=== PATIENT | female | born 1935 | race Caucasian/White ===

== ENCOUNTER 2024-09-08 11:56 | Inpatient (IN) | payer MEDICARE, SELFPAY ==
[2024-09-08] VITALS (16 sets, daily range): BP systolic 129–231; BP diastolic 60–116; PULSE 56–97; RESP 15–20; TEMP 36.1–36.6; O2SAT 96–99; BMI 21.3; BMI 20.7
--- NOTE | ~2024-09-08 | CT_ITS ---
EXAMINATION: CT HEAD WITHOUT IV CONTRAST STROKE HISTORY: Stroke Protocol. TECHNIQUE: Unenhanced helical CT of the head was performed per standard departmental protocol. Coronal and sagittal reformats of the head were also evaluated. One or more of the following techniques was used for dose reduction: Automated exposure control, adjustment of the mA and/or kV according to patient size, use of iterative reconstruction technique. DLP: 642 mGy-cm COMPARISON: There are no prior studies available for comparison. FINDINGS: BRAIN: There is diffuse prominence of the ventricular system and cortical sulci, consistent with atrophy. Periventricular and subcortical white matter hypodensities are noted which are nonspecific, but often seen in the setting of small vessel ischemic disease. There is encephalomalacia in the left occipital lobe, consistent with an old infarct. There is no mass effect or midline shift. No intra- or extra-axial fluid collections are identified. SINUSES: The visualized paranasal sinuses are clear. The mastoid air cells and middle ear cavities are well pneumatized. ORBITS: The visualized orbits are unremarkable. BONES/SOFT TISSUES: The extracranial soft tissues are unremarkable. The calvarium is intact. No suspicious lytic or sclerotic lesions. CT/CT head for STROKE IMPRESSION: No acute intracranial abnormality. No evidence of intracranial hemorrhage. These findings were discussed with Dr. Macias in the emergency room on 09/08/2024 at 12:25 PM. Electronically signed by: Reji Hays MD 09/08/2024 12:24 PM EDT
--- NOTE | ~2024-09-08 | CT_ITS ---
EXAMINATION: CT HEAD NECK ANGIOGRAPHY WITH IV CONTRAST STROKE HISTORY: Stroke Protocol COMPARISON: Correlation is made with the unenhanced head CT performed immediately prior. TECHNIQUE: Helical axial images were obtained from the aortic arch to the vertex after intravenous injection of contrast per standard departmental protocol. MIP/3D reconstructions were obtained and reviewed. One or more of the following techniques was used for dose reduction: Automated exposure control, adjustment of the mA and/or kV according to patient size, use of iterative reconstruction technique. DLP: 615 mGy-cm FINDINGS: CTA NECK: AORTIC ARCH: The visualized portions of the arch as well as innominate, right subclavian, and left subclavian arteries show no hemodynamically significant stenosis. Right common carotid artery: There is no large vessel occlusion or hemodynamically significant stenosis. Right internal carotid artery: There is a moderate amount of calcified and noncalcified plaque at the carotid bulb. There is no large vessel occlusion or hemodynamically significant stenosis. Left common carotid artery: There is no large vessel occlusion or hemodynamically significant stenosis. Left internal carotid artery: There is a moderate amount of calcified and noncalcified plaque at the carotid bulb. There is no large vessel occlusion or hemodynamically significant stenosis. (Extracranial internal carotid artery stenosis estimates are based on use of distal ICA as the denominator.) Right vertebral artery: There is no large vessel occlusion or hemodynamically significant stenosis. Left vertebral artery: There is no large vessel occlusion or hemodynamically significant stenosis. CTA HEAD: Right intracranial ICA: There is marked calcification of the cavernous internal carotid artery with a probable significant stenosis. Right SUJEY: There is no large vessel occlusion, hemodynamically significant stenosis, or aneurysm. Right MCA: There is no large vessel occlusion, hemodynamically significant stenosis, or aneurysm. Left intracranial ICA: There is no large vessel occlusion, hemodynamically significant stenosis, or aneurysm. Left SUJEY: There is no large vessel occlusion, hemodynamically significant stenosis, or aneurysm. Left MCA: There is no large vessel occlusion, hemodynamically significant stenosis, or aneurysm. Basilar artery: There is moderate irregularity of the basilar artery. There is no large vessel occlusion, hemodynamically significant stenosis, or aneurysm. Superior cerebellar arteries: There is no large vessel occlusion, hemodynamically significant stenosis, or aneurysm. Right MARKER HAND: There is no large vessel occlusion, hemodynamically significant stenosis, or aneurysm. Left MARKER HAND: There is origin of the left posterior cerebral artery. There is no large vessel occlusion, hemodynamically significant stenosis, or aneurysm. VEINS: Venous enhancement is within normal limits for this technique. SOFT TISSUES: The bilateral parotid, submandibular, and thyroid glands are unremarkable. No laryngeal abnormality is identified. There is no cervical lymphadenopathy. 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 No large vessel occlusion or aneurysm in the head and neck. Electronically signed by: Reji Hays MD 09/08/2024 12:42 PM EDT
--- NOTE | ~2024-09-08 | US_ITS ---
EXAMINATION: BILATERAL CAROTID ULTRASOUND WITH DOPPLER HISTORY: Carotid stenosis COMPARISON: Correlation is made with a CT angiogram of the neck dated 09/08/2024. TECHNIQUE: Real time and Color and Spectral doppler ultrasonography of the carotid and vertebral arteries was performed in multiple planes. FINDINGS: There is mild plaque at both carotid bulbs. VERTEBRAL FLOW DIRECTION: Antegrade bilaterally. PEAK SYSTOLIC VELOCITIES (in cm/sec): RIGHT: CCA: Prox: 47.0 Dist: 47.0 ICA: Prox: 67.0 Mid: 65.9 Dist: 67.8 ICA/CCA Ratio: 1.44 ECA: 61.6 Peak ICA end diastolic velocity (EDV): 22.1 LEFT: CCA: Prox: 38.8 Dist: 38.8 ICA: Prox: 134 Mid: 55.3 Dist: 69.8 ICA/CCA Ratio: 3.45 ECA: 68.3 Peak ICA end diastolic velocity (EDV): 24.3 US/US carotid duplex BI IMPRESSION: Findings consistent with 0-49% stenosis of the right internal carotid artery and 50-79% stenosis of the left internal carotid artery. Electronically signed by: Reji Hays MD 09/09/2024 01:04 PM EDT
--- NOTE | ~2024-09-08 | MR_ITS ---
CLINICAL HISTORY: Right facial paralysis MR Brain without intravenous contrast Comparison: Head CT from 09/08/2024 Findings: Multiple sequences are degraded by motion artifacts. Study remains diagnostic for acute brain infarction. Predominately linear restricted diffusion concerning for acute brain infarction measures 0.4 x 1.2 cm in medial aspect of the left frontal lobe with involvement of the left frontal centrum semiovale white matter, near midline (image 19 of series 6 and series 7). Small old infarction redemonstrated in the left parieto-occipital junction (imaged 11 of series 5). 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 No midline shift or hydrocephalus. Moderate volume loss is generalized. [id number] white matter pathology likely due to combination of small-vessel ischemic disease and wallerian degeneration. Fluid and mucosal thickening of the paranasal sinuses are multifocal. Small left mastoid effusion. Previous cataract procedure changes with motion artifacts in the orbits/globes. Partially empty sella. Degenerative changes include the imaged spine. IMPRESSION: 1. Small acute infarction in the left frontal lobe measures up to 1.2 cm. 2. Redemonstration of the small old infarctions including of the left parieto-occipital junction. 3. Nonacute white matter pathology is [id number] with likely combination of small-vessel ischemic disease and wallerian degeneration. This document has been electronically signed by: Bryan Adams MD on 09/08/2024 21:35:32
--- NOTE | ~2024-09-08 | XR_ITS ---
EXAMINATION: XR CHEST CLINICAL INFORMATION: stroke COMPARISON: None available. TECHNIQUE: Frontal view of the chest was obtained. FINDINGS: There is convex right curvature of the thoracic spine. There are moderate degenerative changes in the glenohumeral joint with humeral head osteophytes. Amorphous calcific densities are visible in the soft tissues cephalad to the right greater than left humeral head. Moderate calcification is seen in the aortic knob. Coarse interstitial markings are seen in the lateral left lung base .Lungs are clear otherwise. There is biapical pleural thickening, more on the left. XR/XR chest 1V IMPRESSION: Coarse interstitial markings in the left lung base are probably chronic, early pneumonia is not ruled out. Moderate degenerative changes bilateral shoulder joints. Amorphous calcification in the right greater than left soft tissue cephalad to the humeral heads probably represents pyrophosphate deposition or less likely calcific tendinitis. Electronically signed by: Kushal Rosenberg MD 09/08/2024 02:14 PM EDT
--- NOTE | 2024-09-08 11:59 | ECG_ITS ---
Test Reason : Stroke Protocol Blood Pressure : */* mmHG Vent. Rate : 75 BPM Atrial Rate : 75 BPM P-R Int : 154 ms QRS Dur : 132 ms QT Int : 422 ms P-R-T Axes : 68 8 19 degrees QTcB Int : 471 ms Normal sinus rhythm Right bundle branch block Abnormal ECG No previous ECGs available Referred By: Tony Macias Electronically Signed By: TIFFANY ARRIAGA
--- NOTE | 2024-09-08 12:03 | ED.NEUROSD ---
HPI - Neuro Symptoms/Deficit General Chief Complaint: Stroke Stated Complaint: STROKE ALERT, LKW 11AM, HTN, R SIDED DROOP Source: patient, EMS and RN notes reviewed Mode of arrival: EMS Limitations: no limitations History of Present Illness ED Provider: DR. Macias HPI Narrative: 89-year-old female PMH significant for dementia, HTN, anxiety living at assisted living at [facility], last noticed to be normal 11:00, started to have right facial droop and reportedly slurred speech, patient was transported to the hospital as a stroke alert. Reviewing patient medication there is no anticoagulation therapy. On arrival to the ED primary survey revealed apparent right facial droop with no slurred speech, no other weakness. Related Data Allergies Allergy/AdvReac Type Severity Reaction Status Date / Time No Known Allergies Allergy Verified 09/08/24 12:16 Review of Systems Review of Systems: Yes all other systems are reviewed and are negative [facility] Social History Social History Advance Directives: Yes Advance Directives Information Provided: No Advance Directives on File: No Physical Exam Vital Signs: Vital Signs: Last Vital Signs Temp 97.6 F 09/08/24 12:15 Pulse 78 09/08/24 13:08 Resp 16 09/08/24 12:47 BP 202/96 H 09/08/24 13:08 Pulse Ox 99 09/08/24 12:47 O2 Del Method Room Air 09/08/24 12:47 BMI result Body Mass Index 21.3 Appearance: Alert. Oriented X3. No acute distress. Head: Normal external exam. Normocephalic. Atraumatic. No Paula signs noted. No raccoon eyes noted Eyes: PERRLA. EOMI. Conjunctiva and sclera normal. Eyelids normal. ENT: TM's Normal. Pharynx normal. Uvula midline. Moist mucous membranes. No trismus noted. No drooling noted. No muffled voice noted. Neck: Normal inspection. Neck supple. FROM. No adenopathy. Thyroid Normal. No meningeal signs. No neck mass noted. CVS: Normal heart rate and rhythm. Heart sound normal. No murmurs noted. Pulses normal throughout. Respiratory: No respiratory distress. Painless inspiration. Breath sounds normal. No wheezes/rales/rhonchi noted. Chest nontender. No accessory muscle usage noted or decreased air movement noted. Abdomen: Soft and nontender. Bowel sounds normal in all 4 quadrants. No distention noted. No organomegaly noted. No visible injury noted. Back: No CVA tenderness. Full range of motion noted. Skin: Skin warm and dry. Normal skin color. Normal skin turgor. No rashes/lesions/lacerations noted. Extremities: No lower extremity edema. Extremities exhibit normal range of motion. Extremities nontender. Neuro: Oriented X 3. Cranial nerve exam:Right facial droop otherwise II-XII are grossly intact No motor deficit. No sensory deficit. Reflexes normal. Course Reevaluation(s) Reevaluation #1: 89-year-old female came in with right-sided facial droop started at 11:00, NIH score is 2, no LVO on CTA and negative head CT, gradual improvement of the slurred speech, blood pressure is elevated. 1. Case discussed with Dr. Loyd no thrombolysis because patient is improving and low NIH score and extreme of age, will administer aspirin in the ED. 2. Elevated blood pressure controlled with 2 doses of 5 mg of labetalol then oral 100 mg of labetalol. 3. Will admit the patient for further evaluation. Time: 13:31 Medications Administered Discontinued Medications Generic Name Dose Route Start Last Admin Trade Name Keoq PRN Reason Stop Dose Admin Aspirin 325 mg 09/08/24 12:38 09/08/24 12:51 Aspirin Enteric Coated 325 Mg Tablet.Dr MONGE 09/08/24 12:39 325 mg ONCE ONE Administration Iohexol 70 ml 09/08/24 12:24 09/08/24 12:24 Iohexol 350 Mg/Ml 100 Ml Infus..Btl IV 09/08/24 12:25 70 ml ONCE ONE Administration Labetalol HCl 5 mg 09/08/24 12:20 09/08/24 12:27 Labetalol Hcl 100 Mg/20 Ml Vial IVPUSH 09/08/24 12:21 5 mg ONCE ONE Administration Labetalol HCl 5 mg 09/08/24 12:52 09/08/24 13:08 Labetalol Hcl 100 Mg/20 Ml Vial IVPUSH 09/08/24 12:53 5 mg ONCE ONE Administration Medical Decision Making Differential Diagnosis Differential Diagnoses: The differential diagnosis associated with the presentation includes ( Hemorrhagic stroke, ischemic stroke, cardiac dysrhythmia, ACS, electrolyte derangement, severe anemia, hypertensive urgency, hypertensive emergency.) Admission/Observation Consideration of admission/observation: Escalation of care including admission/observation considered Consult Healthcare Provider Management of the patient was discussed with: Hospitalist ( Dr. Larsen) and Employment Training Specialist ( Dr. Loyd) Lab Data MDM Lab Attestation statement: I reviewed the patient's lab results. 09/08/24 12:39 09/08/24 12:39 Labs: Lab Results 09/08/24 09/08/24 09/08/24 Range/Units 11:58 12:20 12:39 WBC 10.6 (4.8-10.8) X10*3/uL RBC 4.62 (4.20-5.50) X10*6/uL Hgb 13.3 (12.0-16.0) g/dl Hct 38.9 (37.0-47.0) % MCV 84.2 (80.0-98.0) fL MCH 28.8 (27.0-33.0) pg MCHC 34.2 (31.0-35.0) g/dl RDW 14.0 (11.0-16.0) % Plt Count 357 (160-400) X10*3/uL MPV 9.1 L (9.4-12.3) fL Immature Gran % (Auto) 0.5 H (0.0-0.4) % Neut % (Auto) 75.5 H (45-73) % Lymph % (Auto) 14.5 L (20-40) % [place] % (Auto) 8.3 (2-11) % Eos % (Auto) 0.6 (0-4) % Baso % (Auto) 0.6 (0-2) % Lymph # (Auto) 1.5 (1.2-4.9) X10*3/uL [place] # (Auto) 0.9 (0.1-1.2) X10*3/uL Eos # (Auto) 0.1 (0.0-0.4) X10*3/uL Baso # (Auto) 0.1 (0.0-0.2) X10*3/uL Abs Immat Gran (auto) 0.05 H (0.00-0.03) X10*3/uL Absolute Neuts (auto) 8.0 (2.0-8.3) x10*3/uL Absolute Nucleated RBC 0.000 (0.0-0.012) X10*3/uL Nucleated RBC % (auto) 0.0 (0.0-0.2) /100WBC PT (10.9-12.4) SEC Whole Blood PT 11.0 L (11.1-13.5) sec INR (0.9-1.1) Whole Blood INR 0.9 (0.9-1.1) APTT (26.0-36.8) SEC Sodium 138 (135-145) mmol/L Potassium 3.5 (3.3-5.1) mmol/L Chloride 105 (96-108) mmol/L Carbon Dioxide 23 (22-29) mmol/L Anion Gap 14 (12-20) BUN 10 (9-16) mg/dL Creatinine 0.65 (0.5-1.4) mg/dL Estim Creat Clear Calc 45.1 Estimated GFR > 60 POC Glucose 116 H (60-115) mg/dL Random Glucose 96 (60-115) mg/dL Calcium 9.5 (8.4-10.2) mg/dL Troponin I High Sens 4.8 (<3.5-17.0) ng/L Triglycerides 74 (<150) mg/dL Cholesterol 152 (<200) mg/dL LDL Cholesterol, Calc 90 (<100) mg/dL HDL Cholesterol 48 (>40) mg/dL / Range/Units 12:54 WBC (4.8-10.8) X10*3/uL RBC (4.20-5.50) X10*6/uL Hgb (12.0-16.0) g/dl Hct (37.0-47.0) % MCV (80.0-98.0) fL MCH (27.0-33.0) pg MCHC (31.0-35.0) g/dl RDW (11.0-16.0) % Plt Count (160-400) X10*3/uL MPV (9.4-12.3) fL Immature Gran % (Auto) (0.0-0.4) % Neut % (Auto) (45-73) % Lymph % (Auto) (20-40) % [place] % (Auto) (2-11) % Eos % (Auto) (0-4) % Baso % (Auto) (0-2) % Lymph # (Auto) (1.2-4.9) X10*3/uL [place] # (Auto) (0.1-1.2) X10*3/uL Eos # (Auto) (0.0-0.4) X10*3/uL Baso # (Auto) (0.0-0.2) X10*3/uL Abs Immat Gran (auto) (0.00-0.03) X10*3/uL Absolute Neuts (auto) (2.0-8.3) x10*3/uL Absolute Nucleated RBC (0.0-0.012) X10*3/uL Nucleated RBC % (auto) (0.0-0.2) /100WBC PT 11.1 (10.9-12.4) SEC Whole Blood PT (11.1-13.5) sec INR 1.0 (0.9-1.1) Whole Blood INR (0.9-1.1) APTT 28.4 (26.0-36.8) SEC Sodium (135-145) mmol/L Potassium (3.3-5.1) mmol/L Chloride (96-108) mmol/L Carbon Dioxide (22-29) mmol/L Anion Gap (12-20) BUN (9-16) mg/dL Creatinine (0.5-1.4) mg/dL Estim Creat Clear Calc Estimated GFR POC Glucose (60-115) mg/dL Random Glucose (60-115) mg/dL Calcium (8.4-10.2) mg/dL Troponin I High Sens (<3.5-17.0) ng/L Triglycerides (<150) mg/dL Cholesterol (<200) mg/dL LDL Cholesterol, Calc (<100) mg/dL HDL Cholesterol (>40) mg/dL Independent Interpretation I performed an independent interpretation of an: CT Scan ( CT/CT angio head and neck:Probable significant stenosis of the right cavernous internal carotid artery. No large vessel occlusion or aneurysm in the head and neck. ) Radiology Impression Discussion of test interpretation with radiology: I have reviewed the radiologist's reading. NIH Stroke Scale Time: 12:14 Level of Consciousness: Alert Level of Consciousness Questions: Answers both questions correctly Level of Consciousness Commands: Performs both tasks correctly Best Gaze: Normal Visual: No visual loss Facial Palsy: Partial paralysis Motor Arm (Right): No drift Motor Arm (Left): No drift Motor Leg (Right): No drift Motor Leg (Left): No drift Limb Ataxia: Absent Sensory: Normal Best Language: No aphasia Dysarthia: Normal Extinction and Inattention: No abnormality Score: 2 Critical Care Time Critical Care Time Critical Care Time: Yes Total Critical Care Time: 60 Attestation: The patient was critically ill with a high probability of imminent or life-threatening deterioration. I spent greater than 30 minutes of discontinuous time evaluating the patient, delivering critical care at the bedside, discussing evaluating data with consultants. Critical care time does not include time spent performing separately billable procedures or teaching. Time spent performing critical care was 60 minutes. Discharge Plan Discharge Clinical Impression: Cerebrovascular accident, Hypertensive urgency Patient Disposition: Admitted As Inpatient Print Language: Kazakh
[2024-09-08 12:24] LABS: Prothrombin Time Whole Bld POC 11.0 sec (11.1-13.5); ~PT, ~INR - Anti Coag Clinic 0.9 (0.9-1.1)
[2024-09-08] MEDS: iohexoL 350 MG/ML 100 ML INFUS..BTL 70 ML IV (12:24)
--- NOTE | 2024-09-08 12:38 | PC.NURSE ---
Pt arrived via EMS, provider and nurse met on arrival. Pt to CT scan and placed in ED 22. A/O x 3, right facial droop noted. Reported to have slurred speech on scene by EMS, now improved. A/O x 3, cooperative with care. Pt placed on bedside monitor, bedside swallow preformed. EKG and labs obtained. #20 to RFA. Py hypertensive with 200's systolically, MD notified and 5mg Labetolol given.
[2024-09-08 12:43] LABS: Glucose, Whole Blood 116 mg/dL (60-115)
[2024-09-08 12:46] LABS: MANUAL DIFF FLAG NO
[2024-09-08 12:47] LABS: Hematocrit 38.9 % (37.0-47.0); Hemoglobin 13.3 g/dl (12.0-16.0); Imm Gran Abs Auto 0.05 X10*3/uL (0.00-0.03); Imm Gran Pct Auto 0.5 % (0.0-0.4); Lymphocytes Absolute Auto 1.5 X10*3/uL (1.2-4.9); Mean Corpuscular HGB Conc 34.2 g/dl (31.0-35.0); Mean Corpuscular Hemoglobin 28.8 pg (27.0-33.0); Mean Corpuscular Volume 84.2 fL (80.0-98.0); NRBC Abs Auto 0.000 X10*3/uL (0.0-0.012); NRBC Pct Auto 0.0 /100WBC (0.0-0.2); Platelet Count 357 X10*3/uL (160-400); Red Blood Count 4.62 X10*6/uL (4.20-5.50); White Blood Count 10.6 X10*3/uL (4.8-10.8)
[2024-09-08] MEDS: Aspirin Enteric Coated 325 MG TABLET.DR PO (12:51)
--- NOTE | 2024-09-08 12:52 | PC.NURSE ---
Pt continues to be hypertensive after 5mg Labetolol, / with HR 78, notified and new orders in place
--- NOTE | 2024-09-08 12:59 | MHC.STROKE ---
Notified of Stroke Alert in bed 22 at 1225 UPon arrival to ED, pt awake, alert, answering questions appropriately. Pt forgetful at times but appropriate. right sided facial droop appreciated. No focal weakness noted on either side. Speaking in full clear sentences. LKWT approx 11am. Stroke Education reviewed with patient. All questions answered. Risk factors discussed including medical history, medications, diet activity, and social hx. Son arrived to bedside. reports hx of dementia. Also reported that right sided facial droop has been present for a few months . Stroke protocol reviewed with patient and son. No distress noted Will Continue to assist as needed.
[2024-09-08 13:04] LABS: Anion Gap 14 (12-20); Blood Urea Nitrogen 10 mg/dL (9-16); Calcium 9.5 mg/dL (8.4-10.2); Carbon Dioxide 23 mmol/L (22-29); Chloride 105 mmol/L (96-108); Cholesterol 152 mg/dL (<200); Creatinine Clr Calc Pharmacy 45.1; Estimated Glomerular Filt Rate > 60; HDL Cholesterol 48 mg/dL (>40); Potassium 3.5 mmol/L (3.3-5.1); Sodium 138 mmol/L (135-145); Triglycerides 74 mg/dL (<150)
[2024-09-08 13:04] LABS: INTERNATIONAL NORM RATIO 1.0 (0.9-1.1); Prothrombin Time 11.1 SEC (10.9-12.4)
[2024-09-08 13:06] LABS: Partial Thromboplastin Time 28.4 SEC (26.0-36.8)
[2024-09-08 13:08] LABS: Stroke Lab Use COMPLETE
[2024-09-08 13:12] LABS: Troponin-I High Sensitivity 4.8 ng/L (<3.5-17.0)
--- NOTE | 2024-09-08 14:36 | P.HPHOSP_ITS ---
History of Present Illness Date of Service: 09/08/24 Attending physician on admission: Savita Pichardo Chief Complaint: Facial droop Ruthie Alexander is 89 years old woman with past medical history significant for essential hypertension and dementia was brought to the emergency department from her assisted living facility after she was noted to have left facial droop. HPI was partially provided by patient's son who was at bedside due to patient's dementia. There is no reported headache, acute visual disturbances, legs or and weakness, palpitations, loss of consciousness or slurred speech. Patient denied any acute gastrointestinal or genitourinary symptoms. She has no history of tobacco smoking, alcohol abuse or illicit drug use. In the ED, she was found to have elevated vital signs (max 231/116). Last blood pressure is 201/90. Other vital signs are normal. Blood workup CBC and BNP are unremarkable. LFTs are normal. INR is 1.0. Head CT scan without contrast showed no acute intracranial abnormality. Head and neck CTA showed probable significant stenosis of the right cavernous internal carotid artery, no large vessel occlusion on aneurysms. CXR showing coarse interstitial marking in the left lung base, probably chronic versus early pneumonia. ECG showed normal sinus rhythm with PVCs, and right bundle branch block. ED tx: Labetalol 10 mg IV total, aspirin 325 mg p.o., metoprolol 100 mg p.o. Review of Systems 2 Review of Systems: Yes Unobtainable due to mental status [facility] Medical History (Updated 09/08/24 @ 16:17 by Savita Pichardo MD) Essential hypertension Social History Smoked in Last 30 Days: No Use of substances other than those prescribed or required for medical reasons: No Advance Directives: Yes Advance Directives Information Provided: No Advance Directives on File: No Meds Allergies Allergy/AdvReac Type Severity Reaction Status Date / Time No Known Allergies Allergy Verified 09/08/24 12:16 Active Medications: Current Medications Acetaminophen (Acetaminophen 325 Mg Tablet) 975 mg PO Q6H PRN PRN Reason: Pain, Mild 1-3,fever,headache Amlodipine Besylate (Amlodipine Besylate 5 Mg Tablet) 5 mg PO DAILY [facility]; Protocol Aspirin (Aspirin Enteric Coated 81 Mg Tablet.) 81 mg PO DAILY [facility] Home Medications ?Medication ?Instructions ?Recorded ?Confirmed ?Last Taken ?Type acetaminophen 325 mg tablet 650 mg PO Q8H PRN Fever Or Pain 09/08/24 09/08/24 Unknown History aspirin 81 mg tablet 81 mg PO DAILY 09/08/2408/15 Unknown History atorvastatin 40 mg tablet 40 mg PO DAILY@199909/08/24 09/08/24 Unknown History ibuprofen 200 mg tablet 200 mg PO DAILY PRN Pain 09/08/24 Unknown History losartan 50 mg tablet 50 mg PO DAILY@199909/08/24 09/08/24 Unknown History Physical Exam 2 Vital Signs and Narrative: Vital Signs: Last Vital Signs Temp 97.6 F 09/08/24 12:15 Pulse 65 09/08/24 14:36 Resp 15 09/08/24 13:58 BP 201/90 H 09/08/24 14:36 Pulse Ox 99 09/08/24 13:20 O2 Del Method Room Air 09/08/24 13:20 BMI result Body Mass Index 21.3 Constitutional - Awake and Alert, No apparent distress. Pleasant. Cooperative. HEENT - PERRL, EOMI Heart - RRR, No murmurs Lungs - Normal lung expansion, Normal respiratory effort, No respiratory distress, CTA bilaterally Abdomen - NT / ND; +BS; No rebound or guarding Extremities - no calf tenderness bilaterally, no swelling, left leg shorter than right leg (left hip chronic issues). Musculoskeletal - Normal inspection, normal ROM Skin - Warm/Dry Neurological - Alert & oriented to person and place, right CN VII affected. She is able to raise her right eyebrow. Strength: 4/5 overall. Psychological - Appropriate affect Results Labs 09/08/24 12:39 09/08/24 12:39 Labs: Laboratory Results - last 24 hr 09/08/24 09/08/24 09/08/24 11:58 12:20 12:39 MCV 84.2 MCH 28.8 MCHC 34.2 RDW 14.0 Plt Count 357 MPV 9.1 L Immature Gran % (Auto) 0.5 H Neut % (Auto) 75.5 H Lymph % (Auto) 14.5 L [place] % (Auto) 8.3 Eos % (Auto) 0.6 Baso % (Auto) 0.6 Lymph # (Auto) 1.5 [place] # (Auto) 0.9 Eos # (Auto) 0.1 Baso # (Auto) 0.1 Abs Immat Gran (auto) 0.05 H Absolute Neuts (auto) 8.0 Absolute Nucleated RBC 0.000 Nucleated RBC % (auto) 0.0 PT Whole Blood PT 11.0 L INR Whole Blood INR 0.9 APTT Anion Gap 14 Estim Creat Clear Calc 45.1 Estimated GFR > 60 POC Glucose 116 H Random Glucose 96 Calcium 9.5 Troponin I High Sens 4.8 Triglycerides 74 Cholesterol 152 LDL Cholesterol, Calc 90 HDL Cholesterol 48 09/08/24 12:54 MCV MCH MCHC RDW Plt Count MPV Immature Gran % (Auto) Neut % (Auto) Lymph % (Auto) [place] % (Auto) Eos % (Auto) Baso % (Auto) Lymph # (Auto) [place] # (Auto) Eos # (Auto) Baso # (Auto) Abs Immat Gran (auto) Absolute Neuts (auto) Absolute Nucleated RBC Nucleated RBC % (auto) PT 11.1 Whole Blood PT INR 1.0 Whole Blood INR APTT 28.4 Anion Gap Estim Creat Clear Calc Estimated GFR POC Glucose Random Glucose Calcium Troponin I High Sens Triglycerides Cholesterol LDL Cholesterol, Calc HDL Cholesterol Imaging Radiologist's Impressions: Impressions Head CT 09/08/24 12:01 IMPRESSION: No acute intracranial abnormality. No evidence of intracranial hemorrhage. These findings were discussed with Dr. Macias in the emergency room on 09/08/2024 at 12:25 PM. 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 No large vessel occlusion or aneurysm in the head and neck. Electronically signed by: Reji Hays MD 09/08/2024 12:42 PM EDT RP Chest X-Ray 09/08/24 13:35 IMPRESSION: Coarse interstitial markings in the left lung base are probably chronic, early pneumonia is not ruled out. Moderate degenerative changes bilateral shoulder joints. Amorphous calcification in the right greater than left soft tissue cephalad to the humeral heads probably represents pyrophosphate deposition or less likely calcific tendinitis. Electronically signed by: Kushal Rosenberg MD 09/08/2024 02:14 PM EDT Assessment and Plan (1) Facial paralysis on right side: Status: Acute (2) Hypertensive emergency: Status: Acute (3) Stenosis of right internal carotid artery: Status: Acute Plan Ruthie Alexander is 89 y/o woman admitted with; * Right facial droop (can raise right eyebrow). Rule out stroke, ?Saenz's palsy + probable significant stenosis of the right cavernous internal carotid artery (patient's son mentioned that she has history of blocked neck vessels). Admit to hospitalist service. Neuro checks every 2 hours. Check brain MRI. Continue aspirin and atorvastatin. PATRICIO Loyd -no interventions and aspirin daily. * Hypertensive emergency. Permissive hypertension. Close monitoring of blood pressure. Start treatment with Norvasc 5 mg p.o. now, losartan 50 mg p.o. now instedad of 8 pm. Labetalol 10 mg IV as needed systolic blood pressure above 160. DVT prophylaxis: Heparin Code status: Full Patient will need hospitalization for symptoms concern is for acute stroke associated with elevated blood pressure treatment with continuous neurological evaluation and IV and p.o. antihypertensive medications + close monitoring of vital signs. Quality Stroke Does the patient have a stroke diagnosis?: No VTE Prior VTE?: No VTE Risk Level:: Medical - moderate - high VTE Device Contraindication: Treatment Not Indicated VTE Drug Contraindication: N/A - Med Ordered
--- NOTE | 2024-09-08 14:41 | PC.NURSE ---
Pt bp at 201/90 after coming down to 150's systolically. MD Pichardo notified. Pt asymptomatic.
--- NOTE | 2024-09-08 14:52 | PHA.MEDREC ---
Addendum entered by Segundo Odell [facility] 09/08/24 15:40: RECEIVED MED LIST FROM [facility] AND [facility] MED LIST WAS UPDATED. Addendum entered by Rich Santillan [facility] 09/08/24 15:07: Reviewed by [facility]. Original Note: Pharmacy Consult ? Medication Reconciliation Pharmacy has completed the medication reconciliation. Spoke with pt son at bedside and he was able to confirm patients medications and he was able to confirm the pt comes from [facility]. The son confirmed she gets a cream from them for a rash on her eye but didn't remember the name of it; I called [facility] to get paperwork re-faxed over, pt never came over with any, and we will update pt med rec according to what the list says.
--- OUTSIDE RECORDS SUMMARY | 2024-09-08 16:01 | XMS_ITS | Data Portability ---
Author Organization [facility] [facility], Main Office Address [address], [address] [place] [address] Care Team Providers Care Shear Tender Name Role Phone [facility] OTHER ROGER CHANDLER Primary Care Provider Assessment Encounter Date Assessment Date Assessment LastModified by Organization Details LastModified Time 04/20/2023 04/20/2023 Pt. seen, examined with student CELL FEED DEPARTMENT SUPERVISOR Desi Michelle, case discussed, POC reviewed and in agreement. Not available 04/20/2023 10:34:47 04/24/2023 04/24/2023 Pt seen and examined with patrizia Bird CELL FEED DEPARTMENT SUPERVISOR; case discussed, agree with POC. Not available 04/24/2023 12:49:24 04/27/2023 04/27/2023 Pt seen and examined with patrizia Bird NP; case discussed, agree with POC. [email or web address] Not available 04/27/2023 10:48:13 04/29/2023 04/29/2023 45 minutes spent on coordination of discharge. [email or web address] Not available 04/29/2023 13:01:02 Plan of Treatment Reminders Order Date Submit Date Provider Last Modified By Organization Details Last Modified Time Details Appointments None record ed. Lab None record ed. Referral None record ed. Procedures None record ed. Surgeries None record ed. Imaging None record ed. Medication Orders None record ed. Patient TargetsNo targets recorded. Patient InstructionsNo instructions recorded. Reason for Referral None Reported. Problems Name Problem SNOMED Code Status Onset Date Resolution Date Notes Provider Name and Address Organization Details Recorded Time Closed fracture of left acetabulum 6029753223336 9107 Active 2020 VESNA ARORA NP [address] [facility], [address], [place], [address], [place] [facility] 15:17:11 Essential hypertensio n 35903063 Active 2020 VESNA ARORA, CELL FEED DEPARTMENT SUPERVISOR [address], [address], [place], [address], [facility] 15:17:19 Hyperlipide anisa 57132282 Active 2020 VESNA MAITE, CELL FEED DEPARTMENT SUPERVISOR [address], [address], [place], [address], [facility] 15:18:44 Depressive disorder 11574547 Active 2020 VESNA MAITE, CELL FEED DEPARTMENT SUPERVISOR [address], [address], [place], [address], [facility] 15:18:57 Fall Active 2020 VESNA MAITE, CELL FEED DEPARTMENT SUPERVISOR [address], [address], [place], [address], [facility] 15:19:02 Zenker's diverticulu m 442637998 Active 2020 VESNA MAITE, CELL FEED DEPARTMENT SUPERVISOR [address], [address], [place], [address], [facility] 15:30:05 Constipatio n 32568052 Active 2020 VESNA MAITE, CELL FEED DEPARTMENT SUPERVISOR [address], [address], [place], [address], [facility] 15:31:05 Impaired cognition 500085124 Active 2020 VESNA MAITE, CELL FEED DEPARTMENT SUPERVISOR [address], [address], [place], [address], [facility] 12:37:56 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 Active 2020 Emerita Evans MD [address], [address], [place], [address], [facility] 14:13:17 SARS-CoV-2 Active 2021 VESNA MAITE, CELL FEED DEPARTMENT SUPERVISOR [address], [address], [place], [address], [facility] 2 12:37:35 Asthenia 17319800 Active 2023 SCOTT KWON NP [address], [address], [place], [address], [facility] 4 09:57:16 Coronary arterioscle rosis 62676655 Active 2023 SCOTT KWON NP [address], [address], [place], [address], [facility] 4 09:57:44 Carotid artery stenosis 56448134 Active 2023 SCOTT KWON NP [address], [address], [place], [address], [facility] 4 09:57:59 Urinary tract infectious disease 33400016 Active 2023 SCOTT KWON NP [address], [address], [place], [address], [facility] 4 10:06:46 Acute retention of urine 960555911 Active 2023 SCOTT KWON NP [address], [address], [place], [address], [facility] 4 10:08:33 Problem Notes None recorded. Medical Equipment None Reported. Allergies No known drug allergies Medications Not known to be on any medication Vitals Date Recorded Respiratory rate Heart rate Body temperature Oxygen saturation Oxygen saturation in Arterial blood by Pulse oximetry Systolic blood pressure Diastolic blood pressure Provider Name and Address Organization Details Last Updated DateTime 4 16 /min 71 /min 98 [degF] 98 % 98 % 122 mm[Hg] 66 mm[Hg] Melissa Michelle [facility] 4 10:30:43 Date Recorded Heart rate Respiratory rate Body temperature Oxygen saturation Oxygen saturation in Arterial blood by Pulse oximetry Systolic blood pressure Diastolic blood pressure Provider Name and Address Organization Details Last Updated DateTime 4 77 /min 18 /min 97.4 [degF] 96 % 96 % 122 mm[Hg] 69 mm[Hg] SCOTT KWON NP [address], [address], [place], [address], [facility] 10:37:48 Date Recorded Body weight Heart rate Respiratory rate Body temperature Oxygen saturation Oxygen saturation in Arterial blood by Pulse oximetry Systolic blood pressure Diastolic blood pressure Provider Name and Address Organization Details Last Updated DateTime 4 48053.1 7 g 70 /min 18 /min 97.6 [degF] 94 % 94 % 108 mm[Hg] 62 mm[Hg] Melissa Michelle [facility] 4 09:55:06 Date Recorded Heart rate Respiratory rate Body temperature Oxygen saturation Oxygen saturation in Arterial blood by Pulse oximetry Systolic blood pressure Diastolic blood pressure Provider Name and Address Organization Details Last Updated DateTime 4 72 /min 18 /min 97.6 [degF] 98 % 98 % 124 mm[Hg] 94 mm[Hg] SCOTT KWON NP [address] [facility] [facility] [address], [place], [address], [facility] 08:35:09 Date Recorded Heart rate Respiratory rate Body temperature Oxygen saturation Oxygen saturation in Arterial blood by Pulse oximetry Systolic blood pressure Diastolic blood pressure Provider Name and Address Organization Details Last Updated DateTime 4 78 /min 18 /min 97.8 [degF] 97 % 97 % 114 mm[Hg] 54 mm[Hg] SCOTT KWON NP [address] [facility], [address], [place], [address], [facility] 4 08:45:10 Social History Question Answer Notes LastModified by Organizat ion Details LastModified Time Tobacco Smoking Status Former Smoker VESNA ARORA NP [address] [facility], [address], [place], [address], [facility] 02/26/2021 15:19:51 Do You Have An Advance Directive? Yes Information not available 02/26/2021 What Is Your Code Status? DNR/DNI [email or web address] Information not available 04/03/2023 Where Do You Live? [facility] Information not available 04/03/2023 Legal Guardian? No Informati on not available 03/01/2021 Do You Have A Medical Power Of Workday Consultant? Yes Has HCP, Invoking, Defers Decision Making To HCP At This Time. [email or web address] Information not available 04/03/2023 What Was The Date Of Your Most Recent Tobacco Screening? 04/03/2023 Information not available 04/03/2023 Do You Have An Out Of Hospital DNR? Yes [email or web address] Information not available 04/03/2023 What Is Your Relationship Status? A Few Yrs. Ago From Mesothelioma [email or web address] Information not available 04/03/2023 Has Tobacco Cessation Counseling Been Provided? No N/a As Pt No Longer Smokes. Information not available 03/01/2021 Sex: Unknown Functional Status Question Answer Note LastModified by Organizat ion Details LastModified Time Do you use any illicit or recreational drugs? No Information not available 03/01/2021 Do you or have you ever used any other forms of tobacco or nicotine? No Information not available 03/01/2021 What is your level of alcohol consumption? None Information not available 02/26/2021 Mental Status None recorded. Family History Relationship Description Onset Age of this Age Resolved Age Notes LastModified by Organization Details LastModified Time Mother Malignant tumor of breast [email or web address] Not available 2023 09:46:03 Medical History No medical history recorded. Gynecological HistoryNo gynecological history recorded. Obstetrics History GPAL:G 0 P 0 0 0 0 Past Encounters Encounter ID Performer Location Encounter Start Date Encounter Closed Date Diagnosis/Indication Diagnosis SNOMED-CT Code Diagnosis ICD10 Code Diagnosis Note [id number] RIDGE PERSAUD [address] [place] [address] 02/26/2021 15:16:27 03/06/2021 10:47:11 Closed fracture of left acetabulum 4838660332 4394886 S32.402A PT OT eval and treatif able to ambulate then probable no total hip arthroplas tyheparin 5000 units tidtylenol 975 mg tid Fall W19.XXXA PT OT eval and treatfall precaution sfrequent safety checks Hyperlipidemia 06540704 E78.5 atorvastat in 10 mg dailyasa 81 mg daily Essential hypertension 29630834 I10 amlodipine 10 mg dailyhctz 25 mg dailymonit or bp Depressive disorder 3548 9007 F32.A remeron 7.5 mg dailypsych prn Zenker's diverticulum 39 8500549 K22.5 protonix 40 mg daily Constipation 62177833 K5 9.00 senna plus bidmiralax daily prn [id number] MD YRIS Last [address] [facility] [place] [address] 03/01/2021 16:01:08 03/07/2021 15:18:11 Closed fracture of left acetabulum 5920342641 8940740 S32.402A With non-operat [facility] for now.Needs PT/OT for strengthen ing, balance, gait training, safety and function.C ontinue APAP 975 mg TID. Pt says she has no sig. pain.Unique nue heparin 5000 U TID for DVT prophylaxi s.Continue fall precaution s.Monitor for safety.F/U with ortho as planned, may need THR. Fall W19.XXXA As above. Hyperlipidemia 56005571 E78.49 Continue atorvastat in 10 mg qd. and ASA 81 mg qd.Monitor labs as outpt. Essential hypertension 97788781 I10 Adequate control on amlodipine 10 mg qd and HCTZ 25 mg qd.BP goal for this elderly woman is permissive HTN, with SBP<150 and DBP<90Moni tor BP and labs. Depressive disorder 3548 9007 F33.1 Continue remeron 7.5 mg qd.Monitor mood.Psych consult prn Zenker's diverticulum 39 6576188 K22.5 No current sxs.Contin ue pantoprazo le 40 mg qd.Monitor for sxs. Constipation 33185452 K5 9.09 Continue senna plus BID and miralax BID prn and other bowel protocol prn.Monito r bowel function. Minimal co gnitive impairment 280842972 G31.84 Vague about dates and times, but overall understand s medical condition. Monitor MS.No need to invoke HCP. [id number] RIDGE PERSAUD [address] [facility] [place] [address] 03/04/2021 11:10:19 03/07/2021 15:27:20 Closed fracture of left acetabulum 7754257951 6923227 S32.402A PT OT eval and treatif able to ambulate then probable no total hip arthroplas tyheparin 5000 units tidtylenol 975 mg tid Impaired cognition 22207 6002 R41.89 very forgetful with intermitte nt confusionr eorient frequently [id number] VESNA ARORA, CELL FEED DEPARTMENT SUPERVISOR [address] [address] 03/07/2021 11:09:10 03/11/2021 15:42:33 Impaired cognition 361878028 R41.89 very forgetful with intermitte nt confusionr eorient frequently Closed fra cture of left acetabulum 0877249960 1024959 S32.402A PT OT eval and treatif able to ambulate then probable no total hip arthroplas tyheparin 5000 units tidtylenol 975 mg tid [id number] VESNA ARORA NP [address] [address] 03/14/2021 09:58:34 03/19/2021 16:00:17 Closed fracture of left acetabulum 8177150877 0938378 S32.402A PT OT eval and treatif able to ambulate then probable no total hip arthroplas tyheparin 5000 units tidtylenol 975 mg tid Impaired cognition 13881 6002 R41.89 very forgetful with intermitte nt confusionr eorient frequently [id number] VESNA ARORA, RIDGE [address] [address] 03/20/2021 10:22:21 03/22/2021 14:52:52 Closed fracture of left acetabulum 2149691810 6769967 S32.402A PT OT eval and treatif able to ambulate then probable no total hip arthroplas tyheparin 5000 units tidtylenol 975 mg tid Impaired cognition 31756 6002 R41.89 very forgetful with intermitte nt confusionr eorient frequently [id number] VESNA ARORA, CELL FEED DEPARTMENT SUPERVISOR [address] [address] 03/28/2021 12:06:38 04/02/2021 18:14:56 SARS-CoV-2 573512952 U07.1 03/26 covid positivePo sitive covid dxmonitor respirator y function, O2 sats and tempmonito r need for O2 supplement ationtreat ment options currently limitedadv anced directives reviewed - full codecontin ue supportive care and consider treatment options as availablet o ED if decompensa ting Minimal co gnitive impairment 537747923 G31.84 Vague about dates and times, but overall understand s medical condition. Monitor MS.No need to invoke HCP. [id number] VESNA ARORA NP [address] [address] 03/29/2021 11:45:16 04/03/2021 10:04:58 SARS-CoV-2 145066717 U07.1 03/26 covid positivePo sitive covid dxmonitor respirator y function, O2 sats and tempmonito r need for O2 supplement ationtreat ment options currently limitedadv anced directives reviewed - full codecontin ue supportive care and consider treatment options as availablet o ED if decompensa ting Minimal co gnitive impairment 941643376 G31.84 Vague about dates and times, but overall understand s medical condition. Monitor MS.No need to invoke HCP. [id number] VESNA ARORA NP [address] [address] 04/01/2021 10:55:57 04/03/2021 10:51:36 SARS-CoV-2 991742982 U07.1 03/26 covid positivePo sitive covid dxmonitor respirator y function, O2 sats and tempmonito r need for O2 supplement ationtreat ment options currently limitedadv anced directives reviewed - full codecontin ue supportive care and consider treatment options as availablet o ED if decompensa ting Minimal co gnitive impairment 595788456 G31.84 Vague about dates and times, but overall understand s medical condition. Monitor MS.No need to invoke HCP. [id number] VESNA ARORA NP [address] [address] 04/03/2021 09:28:53 04/05/2021 09:40:26 SARS-CoV-2 587059770 U07.1 03/26 covid positivePo sitive covid dxmonitor respirator y function, O2 sats and tempmonito r need for O2 supplement ationtreat ment options currently limitedadv anced directives reviewed - full codecontin ue supportive care and consider treatment options as availablet o ED if decompensa ting Minimal co gnitive impairment 258602615 G31.84 Vague about dates and times, but overall understand s medical condition. Monitor MS.No need to invoke HCP. [id number] VESNA ARORA NP [address] [address] 04/04/2021 08:44:25 04/10/2021 14:10:35 SARS-CoV-2 668952210 U07.1 03/26 covid positivePo sitive covid dxmonitor respirator y function, O2 sats and tempmonito r need for O2 supplement ationtreat ment options currently limitedadv anced directives reviewed - full codecontin ue supportive care and consider treatment options as availablet o ED if decompensa ting [id number] VESNA ARORA NP [facility] [address] [place] [address] 04/05/2021 08:20:37 04/10/2021 15:45:33 SARS-CoV-2 165006629 U07.1 03/26 covid positive-r ecovered by date, asymptomat ic Positive covid dx monitor respirator y function, O2 sats and temp monitor need for O2 supplement ation treatment options currently limited advanced directives reviewed - full code continue supportive care and consider treatment options as available to ED if decompensa ting Closed fra cture of left acetabulum 8352710723 9805660 S32.402A PT OT eval and treatif able to ambulate then probable no total hip arthroplas tyheparin 5000 units tidtylenol 975 mg tid Fall W19.XXXA PT OT eval and treatfall precaution sfrequent safety checks Hyperlipidemia 10543169 E78.5 atorvastat in 10 mg dailyasa 81 mg daily Essential hypertension 52321965 I10 amlodipine 10 mg dailyhctz 25 mg dailymonit or bp Depressive disorder 3548 9007 F32.A remeron 7.5 mg dailypsych prn Zenker's diverticulum 39 1452478 K22.5 protonix 40 mg daily Constipation 07548313 K5 9.00 senna plus bidmiralax daily prn [id number] RIDGE PERSAUD [address] [facility] [place] [address] 05/16/2021 11:11:30 05/20/2021 14:06:43 Closed fracture of left acetabulum 8016198363 4638876 S32.402A PT OT eval and treatif able to ambulate then probable no total hip arthroplas tytramadol 25 mg bidtylenol prn Fall W19.XXXA PT OT eval and treatfall precaution sfrequent safety checks Hyperlipidemia 70727836 E78.5 atorvastat in 10 mg dailyasa 81 mg daily Essential hypertension 75088409 I10 amlodipine 10 mg dailyhctz 25 mg dailymonit or bp Depressive disorder 3548 9007 F32.A remeron 7.5 mg dailypsych prn Zenker's diverticulum 39 6843428 K22.5 protonix 40 mg daily Constipation 69449748 K5 9.00 senna plus bidmiralax daily prn Impaired cognition 00286 6002 R41.89 very forgetful with intermitte nt confusionr eorient frequently Minimal co gnitive impairment 598190546 G31.84 Vague about dates and times, but overall understand s medical condition. Monitor MS.No need to invoke HCP. SARS-CoV-2 450790716 U07 .1 03/26 covid positive-r ecovered by date, asymptomat ic Positive covid dx monitor respirator y function, O2 sats and temp monitor need for O2 supplement ation treatment options currently limited advanced directives reviewed - full code continue supportive care and consider treatment options as available to ED if decompensa ting [id number] SCOTT KWON NP [place] [address] [facility] [place] [address] 04/03/2023 09:40:39 04/07/2023 14:06:03 Asthenia 16363728 R53.1 with recent fall at homePT OT eval and tx.[facility]; walked up and down halls yesterday, will stop.Treat ing UTI infectionE ncourage po food and fluids Impaired cognition 27963 6002 R41.89 Has slowly worsened over time at home.Now with acute delirium/m etabolic encephalop athy due to UTI, prolonged hospitaliz ation on top of underlying dementia.U miguelito exam today, Ruthie is oriented x 3, does have some ST and LT memory loss, can recall some informatio n but not all.Will invoke HCP, due to impaired cognition and pt.'s choice to defer all medical decisions at this time to her son/HCPCon tinue home meds:raffi onin 6 mg q HSremeron 15 mg q HStrazodon e25 mg q HS prn x 14 days - monitor use and effect.Mon itor mood, behaviorsP sych eval prn Essential hypertension 47938413 I10 Elevated in hosp.Losar moore increased to 50 mg bidContinu ed amlodipine 10 mg qd and coreg 25 mg bidMonitor VS, BMPAdjust meds prn Coronary arteriosclerosis 97301604 I25.10 Continue home meds:Norva sc, losartan for BP controlCor eg 25 mg bidAtorvas tatin 40 mg qdASA 81 mg qdMonitor VS, labs, CP status Hyperlipidemia 53870477 E78.5 Continue atorvastat in 40 mg qdLipid panel, LFTs prn Urinary tr act infectious disease 28073746 N39.0 Treated with IV rocephin in hosp., now on 2 days of cefpodoxim e 200 mg bidMonitor VS, labs, mentation, sx. Acute rete ntion of urine 489096987 R33.8 hernandez placed in hospitalRe moved here 04/02PVR q 6 hr - current readings in 100s; can stop PVRs if readings today in good rangeMonit or [id number] SCOTT KWON NP [place] [address] [place] [address] 04/06/2023 11:53:48 04/08/2023 09:30:08 Asthenia 23860491 R53.1 with recent fall at homePT OT eval and tx.goal is to return to [facility].Cyndieno x stopped as now more activeTrea ting UTI infectionE ncourage po food and fluids Urinary tr act infectious disease 01739523 N39.0 Treated with IV rocephin in hosp., now completed 2 days of cefpodoxim e 200 mg bidMonitor VS, labs, mentation, sx. Acute rete ntion of urine 719663200 R33.8 hernandez placed in hospitalRe moved here 04/02PVRs 100s, no s/s retentionM onitor Impaired cognition 22042 6002 R41.89 Has slowly worsened over time at home.Now with acute delirium/m etabolic encephalop athy due to UTI, prolonged hospitaliz ation on top of underlying dementia.U miguelito admit, Ruthie is oriented x 3, does have some ST and LT memory loss, can recall some informatio n but not all.HCP invoked due to impaired cognition and pt.'s choice to defer all medical decisions at this time to her son/HCP Continue home meds:raffi onin 6 mg q HSremeron 15 mg q HStrazodon e25 mg q HS prn x 14 days - monitor use and effect - used x 1 04/05Monito r mood, behaviorsP sych eval prn Essential hypertension 22394789 I10 Elevated in hosp., losartan increased to 50 mg bidContinu ed amlodipine 10 mg qd and coreg 25 mg bidMonitor VS, BMPAdjust meds prn Coronary arteriosclerosis 76858286 I25.10 Continue home meds:Norva sc, losartan for BP controlCor eg 25 mg bidAtorvas tatin 40 mg qdASA 81 mg qdMonitor VS, labs, CP status Hyperlipidemia 95649722 E78.5 Continue atorvastat in 40 mg qdLipid panel, LFTs prn [id number] SCOTT KWON NP [place] [address] [place] [address] 04/08/2023 13:08:16 04/10/2023 13:55:43 Asthenia 30512575 R53.1 with recent fall at homePT OT eval and tx.goal is to return to [facility].Loveno x stopped as now more activeTrea leonel UTI infectionE ncourage po food and fluids Urinary tr act infectious disease 77746081 N39.0 Treated with IV rocephin in hosp., now completed 2 days of cefpodoxim e 200 mg bidMonitor VS, labs, mentation, sx.Will start 1 symptom UTI protocol Acute rete ntion of urine 970784127 R33.8 hernandez placed in hospitalRe moved here 04/02PVRs 100s, no s/s retentionM onitor Impaired cognition 22300 6002 R41.89 Has slowly worsened over time at home.Now with acute delirium/m etabolic encephalop athy due to UTI, prolonged hospitaliz ation on top of underlying dementia.U miguelito admit, Ruthie is oriented x 3, does have some ST and LT memory loss, can recall some informatio n but not all.HCP invoked due to impaired cognition and pt.'s choice to defer all medical decisions at this time to her son/HCP Continue home meds:raffi onin 6 mg q HSremeron 15 mg q HStrazodon e25 mg q HS prn x 14 days - monitor use and effect - used x 1 04/05Monito r mood, behaviorsP sych eval prn Essential hypertension 54977633 I10 Elevated in hosp., losartan increased to 50 mg bidContinu ed amlodipine 10 mg qd and coreg 25 mg bidMonitor VS, BMPAdjust meds prn Coronary arteriosclerosis 22340648 I25.10 Continue home meds:Norva sc, losartan for BP controlCor eg 25 mg bidAtorvas tatin 40 mg qdASA 81 mg qdMonitor VS, labs, CP status Hyperlipidemia 52005606 E78.5 Continue atorvastat in 40 mg qdLipid panel, LFTs prn [id number] Memo Patel MD [place] [address] [facility] [place] [address] 04/11/2023 10:48:58 04/14/2023 16:14:22 Metabolic encephalopathy 43373398 G93.41 see HPIquestio n encephalop athy due to UTI with underlying dementiain voke HCPmonitor for behaviorsp sych eval prn Asthenia 92558109 R53.1 PT OT eval and treatmonit or fall risk and need for increased services in communityg oal is return to assisted living Urinary tr act infectious disease 07662504 N30.00 see HPI and aboverocep hin then cefpodoxim 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 rology eval prn Acute rete ntion of urine 025033987 R33.8 required hernandez in patientmon itor for retention Impaired cognition 09416 6002 R41.89 see above with question of underlying dementiain voked HCPmonitor for behaviorsp sych eval prncontinu e out patient meds Essential hypertension 62807755 I10 losartan increase in hospitalmo nitor need to titrate medication s Coronary arteriosclerosis 60104697 I25.10 coreg 25 mg bidlipitor 40 mg qdASA 81 mg qdmonitor for sx Hyperlipidemia 28905909 E78.2 lipitor 40 mg qdcontinue d Dependent edema 14145933 4 R60.0 lower extremity edema with heart murmur to AVmonitor need for echo [id number] SCOTT KWON NP [place] [address] [facility] [place] [address] 04/13/2023 10:17:47 04/15/2023 10:03:13 Asthenia 09003450 R53.1 with recent fall at homePT OT eval and tx.goal is to return to [facility].Loveno x stopped as now more activeTrea leonel UTI infectionE ncourage po food and fluids Urinary tr act infectious disease 45748905 N39.0 Treated with IV rocephin in hosp., now completed course of cefpodoxim e 200 mg bidMonitor VS, labs, mentation, sx. Denies any symptoms at this time.Start ed 1 symptom UTI protocol the end of last weekDue to persistent confusion, anxiety, and slept poor last night after 3 days of 1 symptom UTI protocol will obtain UA + C&S Acute rete ntion of urine 773987376 R33.8 hernandez placed in hospitalRe moved here 04/02PVRs 100s, no s/s retentionM onitor Impaired cognition 92588 6002 R41.89 Has slowly worsened over time at home.Now with acute delirium/m etabolic encephalop athy due to UTI, prolonged hospitaliz ation on top of underlying dementia.U miguelito admit, Ruthie is oriented x 3, does have some ST and LT memory loss, can recall some informatio n but not all.HCP invoked due to impaired cognition and pt.'s choice to defer all medical decisions at this time to her son/HCP Continue home meds:raffi onin 6 mg q HSremeron 15 mg q HStrazodon e25 mg q HS prn x 14 days - monitor use and effect - used x 1 ito r mood, behaviorsP sych eval prn Essential hypertension 24464410 I10 Elevated in hosp., losartan increased to 50 mg bidContinu ed amlodipine 10 mg qd and coreg 25 mg bidMonitor VS, BMPAdjust meds prnBP stable at 106/62 Coronary arteriosclerosis 79709377 I25.10 Continue home meds:Norva sc, losartan for BP controlCor eg 25 mg bidAtorvas tatin 40 mg qdASA 81 mg qdMonitor VS, labs, CP status Hyperlipidemia 69355890 E78.5 Continue atorvastat in 40 mg qdLipid panel, LFTs prn Peripheral edema 7510003 00 R60.9 +1 pitting edema noted to RLE, +2 to LLE, newer issue.Uncl ear etiologyPl an:add short course of furosemide 20mg qd, monitor BP, re-eval Wed.Monito r BMP in AMRule out DVT via ultrasound Elevate legs when able.If ultrasound is negative for DVT may consider compressio n stockingsW ith hx. CAD, may also consider Echo.Maint ain nutrition/ protein intake. [id number] SCOTT KWON NP [place] [address] [facility] [place] [address] 04/15/2023 09:38:44 04/23/2023 15:53:14 Peripheral edema [id number] R60.9 +2 pitting edema to BLE - particular ly in the feetUnclea r etiologyPl an:Continu e 20mg of furosemide qd, monitor BP, re-eval tor BMP - repeat 2/5Elevate legs when able.Add compressio n stockings or tubigrip daily as tolerated. Add daily weights to monitor fluid statusWith hx. CAD, may also consider Echo.Maint ain nutrition/ protein intake. Asthenia 16309172 R53.1 with recent fall at homePT OT eval and tx.goal is to return to [facility].Loveno x stopped as now more activeTrea leonel UTI infection, repeat UA neg.Encour age po food and fluids Urinary tr act infectious disease 55688408 N39.0 Treated with IV rocephin in hosp., now completed course of cefpodoxim e 200 mg bidMonitor VS, labs, mentation, sx. Denies any symptoms at this time.Repea t UA negative for UTI, monitor symptoms. Acute rete ntion of urine 215464418 R33.8 hernandez placed in hospitalRe moved here 04/02PVRs 100s, no s/s retentionM onitor Impaired cognition 64336 6002 R41.89 Has slowly worsened over time at home.Now with acute delirium/m etabolic encephalop athy due to UTI, prolonged hospitaliz ation on top of underlying dementia.U miguelito admit, Ruthie is oriented x 3, does have some ST and LT memory loss, can recall some informatio n but not all.HCP invoked due to impaired cognition and pt.'s choice to defer all medical decisions at this time to her son/HCP Per staff, still with confusion/ cognitive impairment .Repeat UA neg. Continue home meds:raffi onin 6 mg q HSremeron 15 mg q HStrazodon e25 mg q HS prn x 14 days - up for re-eval, used only a few times, will stop.Monit or mood, behaviorsP sych eval prn Essential hypertension 35612586 I10 Elevated in hosp., losartan increased to 50 mg bidContinu ed amlodipine 10 mg qd and coreg 25 mg bidMonitor VS, BMPAdjust meds prnBP slightly elevated today at 144/60, recent trend of BP is stable, continue current medication regimen. Coronary arteriosclerosis 80409225 I25.10 Continue home meds:Norva sc, losartan for BP controlCor eg 25 mg bidAtorvas tatin 40 mg qdASA 81 mg qdMonitor VS, labs, CP status Hyperlipidemia 34218870 E78.5 Continue atorvastat in 40 mg qdLipid panel, LFTs prn [id number] SCOTT KWON NP [place] [address] [place] [address] 04/17/2023 08:22:25 04/23/2023 16:01:08 Peripheral edema 739852621 R60.9 Still continues with +2 pitting edema to BLE - particular ly in the feetUnclea r etiologyPl an:Continu e 20mg of furosemide qd, monitor BP. On Thursday we will re-assess fluid status, may need to increase furosemide to 40mg but will wait for weight + daily compressio n stockings to be done.On examinatio n patient was seen without compressio n stockings on: Add compressio n stockings or tubigrip daily as toleratedM onitor BMP - repeat 2/5Elevate legs when able.Add daily weights to monitor fluid status - last weight was 123.6 on 04/14/23. Noticed in chart there was no order for daily weights, will change this.With hx. CAD, may also consider Echo.Maint ain nutrition/ protein intake. Asthenia 38154842 R53.1 with recent fall at homePT OT eval and tx.goal is to return to [facility].Loveno x stopped as now more activeTrea leonel UTI infection, repeat UA neg.Encour age po food and fluids Urinary tr act infectious disease 11339561 N39.0 Treated with IV rocephin in hosp., now completed course of cefpodoxim e 200 mg bidMonitor VS, labs, mentation, sx. Denies any symptoms at this time.Repea t UA negative for UTI, monitor symptoms. Acute rete ntion of urine 203461010 R33.8 hernandez placed in hospitalRe moved here 04/02PVRs 100s, no s/s retentionM onitor Impaired cognition 72969 6002 R41.89 Has slowly worsened over time at home.Now with acute delirium/m etabolic encephalop athy due to UTI, prolonged hospitaliz ation on top of underlying dementia.U miguelito admit, Ruthie is oriented x 3, does have some ST and LT memory loss, can recall some informatio n but not all.HCP invoked due to impaired cognition and pt.'s choice to defer all medical decisions at this time to her son/HCP Per staff, still with confusion/ cognitive impairment .Repeat UA neg. Continue home meds:raffi onin 6 mg q HSremeron 15 mg q HStrazodon e25 mg q HS prn x 14 days - up for re-eval, used only a few times, will stop.Monit or mood, behaviorsP sych eval prn Essential hypertension 62357553 I10 Elevated in hosp., losartan increased to 50 mg bidContinu ed amlodipine 10 mg qd and coreg 25 mg bidMonitor VS, BMPAdjust meds prnBP slightly elevated today at 144/60, recent trend of BP is stable, continue current medication regimen. Coronary arteriosclerosis 23323176 I25.10 Continue home meds:Norva sc, losartan for BP controlCor eg 25 mg bidAtorvas tatin 40 mg qdASA 81 mg qdMonitor VS, labs, CP status Hyperlipidemia 03953622 E78.5 Continue atorvastat in 40 mg qdLipid panel, LFTs prn Atrophic vaginitis 13451 000 N95.2 Saw by urology on 04/16/23Diag nosed with: AV alongside cervical prolapse, urethrocel e, and urinary incontinen cerecommen ded:Start estrace cream 0.01% (2g) 1/2 applicatio n vag 3x/week using fingertipH old OAB med for nowMonitor for UTI symptoms [id number] SCOTT KWON NP [place] [address] [facility] [place] [address] 04/20/2023 08:23:40 04/28/2023 11:13:38 Peripheral edema 976678638 R60.9 Last week patient was seen with +2 pitting edema to BLE - particular ly in the feet.BLE US neg. for DVTLasix 20 mg qd started BLE edema seems improved with +1 edema, and patient reports her legs feel less swollen. Plan:Unique nue 20mg of furosemide qd, monitor BP. We will reassess fluid status on Thursday. Hold off on increasing furosemide to 40mg, as she seems be tolerating 20mg well.On examinatio n patient was seen without compressio n stockings on despite order in place: Add compressio n stockings or tubigrip daily as tolerated. Monitor BMP - repeat 2/6Elevate legs when able.Last weight was 123.6 on 04/14/23. Check weights 3x wk to help monitor fluid balance.Wi th hx. CAD, may also consider Echo if swelling remains problemati cMaintain nutrition/ protein intake. Atrophic vaginitis 84270 000 N95.2 Saw by urology on 04/16/23Diag nosed with: AV alongside cervical prolapse, urethrocel e, and urinary incontinen ceStarted estrace cream 0.01% (2g) 1/ applicatio n vag 3x/week using fingertipH old OAB med for nowMonitor for UTI symptoms Asthenia 58901218 R53.1 with recent fall at homePT OT eval and tx.goal is to return to [facility].Cyndieno x stopped as now more activeTrea leonel UTI infection, repeat UA neg.Encour age po food and fluids Urinary tr act infectious disease 89598614 N39.0 Treated with IV rocephin in hosp., now completed course of cefpodoxim e 200 mg bidMonitor VS, labs, mentation, sx. Denies any symptoms at this time.Repea t UA negative for UTI, monitor symptoms. Acute rete ntion of urine 928525472 R33.8 hernandez placed in hospitalRe moved here 04/02PVRs 100s, no s/s retentionM onitor Impaired cognition 16076 6002 R41.89 Has slowly worsened over time at home.Now with acute delirium/m etabolic encephalop athy due to UTI, prolonged hospitaliz ation on top of underlying dementia.U miguelito admit, Ruthei is oriented x 3, does have some ST and LT memory loss, can recall some informatio n but not all.HCP invoked due to impaired cognition and pt.'s choice to defer all medical decisions at this time to her son/HCP Per staff, still with confusion/ cognitive impairment .Repeat UA neg. Psych saw 04/17/23, no changes recommende d at this time.Unique nue home meds:raffi onin 6 mg q HSremeron 15 mg q HStrazodon e25 mg q HS prn x 14 days - used only a few times, stopped.Mo nitor mood, behaviorsP sych eval prn Essential hypertension 19183430 I10 Elevated in hosp., losartan increased to 50 mg bidContinu ed amlodipine 10 mg qd and coreg 25 mg bidMonitor VS, BMPBP stable today at 122/66, continue current medication regimen.Ad just meds PRN Coronary arteriosclerosis 20315274 I25.10 Continue home meds:Norva sc, losartan for BP controlCor eg 25 mg bidAtorvas tatin 40 mg qdASA 81 mg qdMonitor VS, labs, CP statusMoni tor BLE edema - responding wel to lasix 20 mg qd; following labs Hyperlipidemia 83909526 E78.5 Continue atorvastat in 40 mg qdLipid panel, LFTs prn [id number] SCOTT KWON NP [place] [address] [facility] [place] [address] 04/22/2023 10:37:11 04/28/2023 11:30:13 Peripheral edema 515506027 R60.9 Last week patient was seen with +2 pitting edema to BLE - particular ly in the feet.BLE US neg. for DVTLasix 20 mg qd started 04/13Edema finally improving, but not resolved.V SSweights going up rapidly - up 10 lbs. if readings accurate. Plan:Due to CAD and rapid weight gain, increase lasix to 20 mg bid x 3 days, then resume 20 mg qd.Change diet to low salt.Steele e weights to daily.Aditi tor VSEnc. use of compressio n stockings and elevation. BMP 04/28 With hx. CAD, consider Echo if swelling remains problemati cMaintain nutrition/ protein intake. Atrophic vaginitis 71865 000 N95.2 Saw by urology on 04/16/23Diag nosed with: AV alongside cervical prolapse, urethrocel e, and urinary incontinen ceStarted estrace cream 0.01% (2g) /2 applicatio n vag 3x/week using fingertipH old OAB med for nowMonitor for UTI symptoms Asthenia 98183457 R53.1 with recent fall at homePT OT eval and tx.goal is to return to [facility].Loveno x stopped as now more activeTrea leonel UTI infection, repeat UA neg.Encour age po food and fluids Urinary tr act infectious disease 12604954 N39.0 Treated with IV rocephin in hosp., now completed course of cefpodoxim e 200 mg bidMonitor VS, labs, mentation, sx. Denies any symptoms at this time.Repea t UA negative for UTI, monitor symptoms. Acute rete ntion of urine 239856578 R33.8 hernandez placed in hospitalRe moved here 1/18PVRs 100s, no s/s retentionM onitor Impaired cognition 99914 6002 R41.89 Has slowly worsened over time at home.Now with acute delirium/m etabolic encephalop athy due to UTI, prolonged hospitaliz ation on top of underlying dementia.U miguelito admit, Ruthie is oriented x 3, does have some ST and LT memory loss, can recall some informatio n but not all.HCP invoked due to impaired cognition and pt.'s choice to defer all medical decisions at this time to her son/HCP Per staff, still with confusion/ cognitive impairment .Repeat UA neg. Psych saw 04/17/23, no changes recommende d at this time.Unique nue home meds:raffi onin 6 mg q HSremeron 15 mg q HStrazodon e25 mg q HS prn x 14 days - used only a few times, stopped.Mo nitor mood, behaviorsP sych eval prn Essential hypertension 45076820 I10 Elevated in hosp., losartan increased to 50 mg bidContinu ed amlodipine 10 mg qd and coreg 25 mg bidNow on lasix due to peripheral edema - 20 mg qdMonitor VS, BMPAdjust meds PRN Coronary arteriosclerosis 27674447 I25.10 Continue home meds:Norva sc, losartan for BP controlCor eg 25 mg bidAtorvas tatin 40 mg qdASA 81 mg qd As above, lasix 20 mg qd added for edema. Change diet to low sodium/car diacChange weights to daily due to 10 lb weight gain since admission. Monitor VS, labs, CP statusBMP 04/28 Hyperlipidemia 72176868 E78.5 Continue atorvastat in 40 mg qdLipid panel, LFTs prn [id number] SCOTT KWON NP [place] [address] [facility] [place] [address] 04/24/2023 08:18:17 04/28/2023 11:40:06 Peripheral edema 767704600 R60.9 Last week patient was seen with +2 pitting edema to BLE - particular ly in the feet.BLE US neg. for DVTLasix 20 mg qd started 04/13Edema finally improving, but not resolved.V SSWeights were going up rapidly - up 10 lbs. if readings accurate.I ncreased lasix to 20mg bid x3 days and then resume 20mg qd. (Due to finish 3 day course on 04/26/23)We ights are now slowly decreasing 127.6lbs (04/22)->125 .4lbs(04/23) ->124.2lbs (04/24) Plan:Will finish 3 day dose of extra lasix on 04/26...aft er that will resume 20mg qdChanged diet to low salt.Steele ed weights to dailyMonit or VSEnc. use of compressio n stockings and elevation. Will re-assess fluid status on 04/27BMP 04/28 With hx. CAD, consider Echo if swelling remains problemati cMaintain nutrition/ protein intake. Atrophic vaginitis 71622 000 N95.2 Saw by urology on 04/16/23Diag nosed with: AV alongside cervical prolapse, urethrocel e, and urinary incontinen ceStarted estrace cream 0.01% (2g) 03/17 applicatio n vag 3x/week using fingertipH old OAB med for nowMonitor for UTI symptoms Asthenia 72068425 R53.1 with recent fall at homePT OT eval and tx.goal is to return to [facility].Cyndieno x stopped as now more activeTrea leonel UTI infection, repeat UA neg.Encour age po food and fluids Urinary tr act infectious disease 82019975 N39.0 Treated with IV rocephin in hosp., now completed course of cefpodoxim e 200 mg bidMonitor VS, labs, mentation, sx. Denies any symptoms at this time.Repea t UA negative for UTI, monitor symptoms. Acute rete ntion of urine 159204918 R33.8 hernandez placed in hospitalRe moved here 04/02PVRs 100s, no s/s retentionM onitor Impaired cognition 68221 6002 R41.89 Has slowly worsened over time at home.Now with acute delirium/m etabolic encephalop athy due to UTI, prolonged hospitaliz ation on top of underlying dementia.U miguelito admit, Ruthie is oriented x 3, does have some ST and LT memory loss, can recall some informatio n but not all.HCP invoked due to impaired cognition and pt.'s choice to defer all medical decisions at this time to her son/HCP Per staff, still with confusion/ cognitive impairment .Repeat UA neg. Psych saw 04/17/23, no changes recommende d at this time.Unique nue home meds:raffi onin 6 mg q HSremeron 15 mg q HStrazodon e25 mg q HS prn x 14 days - used only a few times, stopped.Mo nitor mood, behaviorsP sych eval prn Essential hypertension 50314133 I10 Elevated in hosp., losartan increased to 50 mg bidContinu ed amlodipine 10 mg qd and coreg 25 mg bidNow on lasix due to peripheral edema - 20 mg qdMonitor VS, BMPAdjust meds PRN Coronary arteriosclerosis 89251368 I25.10 Continue home meds:Norva sc, losartan for BP controlCor eg 25 mg bidAtorvas tatin 40 mg qdASA 81 mg qd As above, lasix 20 mg qd added for edema. Change diet to low sodium/car diacChange weights to daily due to 10 lb weight gain since admission. Monitor VS, labs, CP statusBMP 04/28 Hyperlipidemia 11744425 E78.5 Continue atorvastat in 40 mg qdLipid panel, LFTs prn [id number] SCOTT KWON NP [place] [address] [facility] [place] [address] 04/27/2023 08:34:29 05/01/2023 10:45:41 Peripheral edema 684373505 R60.9 Last week patient was seen with +2 pitting edema to BLE - particular ly in the feet.Lasix 20 mg qd started 04/13., dose bumped up to bid x 3 days recently to help off load more fluid. Today the swelling seems improved and lower extremitie s are both symmetrica l in size, +1 pitting. Bilateral feet seem less swollen from last week, 3 day extra course of lasix seems like it helped.BLE US neg. for DVTVSSWeig hts being monitored - were going up rapidly prior to start of lasix and then started to go down as desired with lasix use. Weight as low as 124 lbs on 04/24, has since gone up to 127 lbs as of yesterday although swelling seems to be improved. Plan:Finis hed 3 day dose of extra lasix on 04/26 Resumed furosemide 20mg qd.Changed diet to low salt, tolerating well.Steele ed weights to daily - monitorMon itor VSEnc. use of compressio n stockings and elevation. BLE edema seems improved and both legs are symmetric in size... +1 pitting.BM P 04/28 With hx. CAD, consider Echo if swelling remains problemati cMaintain nutrition/ protein intake. Atrophic vaginitis 49384 000 N95.2 Saw by urology on 04/16/23Diag nosed with: AV alongside cervical prolapse, urethrocel e, and urinary incontinen ceStarted estrace cream 0.01% (2g) 03/17 applicatio n vag 3x/week using fingertipH old OAB med for nowMonitor for UTI symptoms Asthenia 15630416 R53.1 with recent fall at homePT OT eval and tx.goal is to return to [facility].Loveno x stopped as now more activeTrea leonel UTI infection, repeat UA neg.Encour age po food and fluids Urinary tr act infectious disease 62770196 N39.0 Treated with IV rocephin in hosp., now completed course of cefpodoxim e 200 mg bidMonitor VS, labs, mentation, sx. Denies any symptoms at this time.Repea t UA negative for UTI, monitor symptoms. Acute rete ntion of urine 337269049 R33.8 hernandez placed in hospitalRe moved here 04/02PVRs 100s, no s/s retentionM onitor Impaired cognition 52422 6002 R41.89 Has slowly worsened over time at home.Now with acute delirium/m etabolic encephalop athy due to UTI, prolonged hospitaliz ation on top of underlying dementia.U miguelito admit, Ruthie is oriented x 3, does have some ST and LT memory loss, can recall some informatio n but not all.HCP invoked due to impaired cognition and pt.'s choice to defer all medical decisions at this time to her son/HCP Per staff, still with confusion/ cognitive impairment .Repeat UA neg. Psych saw 04/17/23, no changes recommende d at this time.Unique nue home meds:raffi onin 6 mg q HSremeron 15 mg q HStrazodon e25 mg q HS prn x 14 days - used only a few times, stopped.Mo nitor mood, behaviorsP sych eval prn Essential hypertension 71619525 I10 Elevated in hosp., losartan increased to 50 mg bidContinu ed amlodipine 10 mg qd and coreg 25 mg bidNow on lasix due to peripheral edema - 20 mg qdBP stable with addition of lasixMonit or VS, BMPAdjust meds PRN Coronary arteriosclerosis 96359877 I25.10 Continue home meds:Norva sc, losartan for BP controlCor eg 25 mg bidAtorvas tatin 40 mg qdASA 81 mg qd As above, lasix 20 mg qd added for edema. Change diet to low sodium/car diacChange weights to daily due to 10 lb weight gain since admission. Monitor VS, labs, CP statusBMP 04/28 Hyperlipidemia 08948976 E78.5 Continue atorvastat in 40 mg qdLipid panel, LFTs prn [id number] SCOTT KWON NP [place] [address] [place] [address] 04/29/2023 08:16:39 05/01/2023 10:53:50 Peripheral edema 783380096 R60.9 New issue while here - BLE.Weight was increasing rapidly as well. BLE venous US neg. for DVT.Starte d lasix 20 mg qd with improvemen t in edema, but not resolved. Will continue upon discharge. Diet changed to low salt.Tubig rip stockings added for gentle compressio n.VSS, BMP stable with addition of diuretic.W eights holding steady +/- 125 lbs. With hx. CAD, consider Echo if swelling remains problemati cMaintain nutrition/ protein intake. Atrophic vaginitis 95831 000 N95.2 Seen by urology on 04/16/23Diag nosed with: AV as well as cervical prolapse, urethrocel e, and urinary incontinen ceStarted estrace cream 0.01% (2g) 1/2 applicatio n vag 3x/week using fingertipN o OAB med for nowMonitor for UTI symptoms as outpt. Asthenia 81698309 R53.1 with recent fall at homePT OT eval and tx. - meeting [facility] to [facility] at wheelchair level.Aditi orestes as outpt. Urinary tr act infectious disease 48353053 N39.0 Treated with IV rocephin in hosp., now completed course of cefpodoxim e 200 mg bidRepeat UA C&S neg. for UTI.Seen by Urology [employer] - estrace cream started which should help reduce chance of infection. Monitor sx. as outpt. Acute rete ntion of urine 056459837 R33.8 hernandez placed in hospitalRe moved here 04/02PVRs 100s, no s/s retentionM onitor as outpt. Impaired cognition 68724 6002 R41.89 Has slowly worsened over time at home.Recen t acute delirium/m etabolic encephalop athy due to UTI, prolonged hospitaliz ation on top of underlying dementia.C ognition improved while here, but still with some ST and LT memory loss, can recall some informatio n but not all.HCP invoked due to impaired cognition and pt.'s choice to defer all medical decisions at this time to her son/HCP Psych eval. 04/17/23, no changes recommende d at this time.Unique nue home meds:raffi onin 6 mg q HSremeron 15 mg q HS Monitor mood, behaviorsP sych eval prn as outpt. Essential hypertension 28160620 I10 Elevated in hosp., losartan increased to 50 mg bidContinu ed amlodipine 10 mg qd and coreg 25 mg bidNow on lasix due to peripheral edema - 20 mg qdBP stable with addition of lasixMonit or VS, BMPAdjust meds PRN Coronary arteriosclerosis 24633475 I25.10 Continue home meds:Norva sc, losartan for BP controlCor eg 25 mg bidAtorvas tatin 40 mg qdASA 81 mg qd As above, lasix 20 mg qd added for edema. Changed diet to low sodium/car diacChange d weights to daily due to 10 lb weight gain since admission. Weights now stable +/- 125 lbs.Monito r VS, labs, CP status as outpt. Hyperlipidemia 98066787 E78.5 Continue atorvastat in 40 mg qdLipid panel, LFTs prn Health Concerns Section Related Observation LastModified by Organization Detai ls LastModified Time None Recorded Concern Status LastModified by Organization Details LastModified Time None Recorded Advance Directives Directive Y: Payers Insurance Date Sequence Insurance Name Policy Number Policy Mcnair Covered Member ID Mcnair Member ID Guarantor Name 04/17/2023 1 [place] [employer] [place] Ruthie Alexander [id number] Ruthie Alexander 05/01/2023 2 [place] [id number] Ruthie Alexander [id number] Ruthie Alexander 06/07/2021 2 [id number] [id number] Ruthie Alexander [id number] Ruthie Alexander Notes Date Note Type Note Provider Name and Address Organization Details Recorded Time 04/20/2023 text/html Ruthie is seen tod lucio for an acute visit. She is an 87 yo lady, admitted to [facility] 04/01/23 from [facility] for continued care and rehab after a brief hosp. related to altered MS. Presented to [facility] on 03/27/23 for increased confusion, weakness, and a recent fall. Was found to have UTI. Patient was treated with IV ceftriaxone. Found to have urinary retention, hernandez placed in hospital. Hernandez removed here, voiding well. Elevated BP in hospital- losartan dose increased, amlodipine and coreg continued. BP stable so far while here. Cognition not back to baseline, metabolic encephalopathy and delirium felt related to UTI, prolonged hospital stay, and underlying dementia. Still continues with confusion here. UTI protocol started, and despite encouraging fluids, routine toileting and increased pericare, behaviors continue. UA C&S repeated, results neg. Issues with BLE edema last week, Venous US neg DVT. Started lasix 20 mg qd, slow to offload fluid but today swelling is better. Still not wearing supp hose.No recent weightsVSS. On examination the patient was seen in the dining room in her wheelchair. Reports that the swelling in her legs is better. Seen on 04/13/23 at which time we added 20mg of furosemide qd. BLE edema has improved to +1 pitting, still particularly in the feet. She thinks the lasix is making her feel much better. Denies any SOB, chest pain or pain. Ultrasound negative for DVT. Continues to be in her wheelchair throughout the day with legs in dependent position. Also seen on examination without compression stockings. Still waiting on weight this week for fluid status- vitals are WNL, BP stable at this time. Case discussed with rehab, continues to work with PT/OT, having issues with urinary incontinence as well as continued confusion.Case discussed with nsg., no new issues, remains confused.Labs stable.VSS. 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 Estrace cream 3x wk recommended. PMH: HTN, Zenker's diverticulum, subclinical hypothyroidism, depression, mild cognitive impairment, s/p left hip fx [id number] tx, HLD and prolonged QTc, constipation, HTN, falls, COVID, zenkers diverticulum, CAD, CASMOLST: DNR, DNI SCOTT KWON, R[facility] [address] [facility], [address], [place], [address], [facility] - CDP 04/20/2023 15:00:33 04/22/2023 text/html Ruthie is seen to[facility] for an acute visit. She is an 87 yo lady, admitted to [facility] 04/01/23 from [facility] for continued care and rehab after a brief hosp. related to altered MS. Presented to [facility] on 03/27/23 for increased confusion, weakness, and a recent fall. Was found to have UTI. Patient was treated with IV ceftriaxone. Found to have urinary retention, hernandez placed in hospital. Hernandez removed here, voiding well. Elevated BP in hospital- losartan dose increased, amlodipine and coreg continued. BP stable so far while here. Cognition not back to baseline, metabolic encephalopathy and delirium felt related to UTI, prolonged hospital stay, and underlying dementia. Still continues with confusion here. UA C&S repeated, results neg. Issues with BLE edema - Venous US neg DVT. Started lasix 20 mg qd with improvement in swelling, but not resolved. Still not wearing supp hose.VSS.Trending weights - 117 -> 120 -> 123.6 -> 127.6 lbs today.BMP stable since adding lasix. Upon exam, Ruthie is in bed. Wants to go home. Depressed that she feels fine and is still here. Feels well, has no complaints other than she knows she is still weak. Working with rehab, progress fluctuates depending on cognition. Increased issues with urinary incontinence, ? r/t lasix. Continues to work with PT/OT, having issues with urinary incontinence as well as continued confusion which interferes with her progress. 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 Estrace cream 3x wk recommended. PMH: HTN, Zenker's diverticulum, subclinical hypothyroidism, depression, mild cognitive impairment, s/p left hip fx [id number] tx, HLD and prolonged QTc, constipation, HTN, falls, COVID, zenkers diverticulum, CAD, CASMOLST: DNR, DNI SCOTT KWON, [address], [address], [place], [address], [facility] - CDP 04/22/2023 13:14:36 04/24/2023 text/html [facility] She is an 87 yo lady, admitted to [facility] 04/01/23 from [facility] for continued care and rehab after a brief hosp. related to altered MS. Presented to [facility] on 03/27/23 for increased confusion, weakness, and a recent fall. Was found to have UTI. Patient was treated with IV ceftriaxone. Found to have urinary retention, hernandez placed in hospital. Hernandez removed here, voiding well. Elevated BP in hospital- losartan dose increased, amlodipine and coreg continued. BP stable so far while here. Cognition not back to baseline, metabolic encephalopathy and delirium felt related to UTI, prolonged hospital stay, and underlying dementia. Still continues with confusion here. UA C&S repeated, results neg. Issues with BLE edema - Venous US neg DVT. Started lasix 20 mg qd with improvement in swelling, but not resolved. Added extra dose of furosemide for 3 days (20mg BID x3 days). Wearing compression stockings to BLE.VSS.Trending weights- 127.6(04/22)->125.4(04/23)->124.2(04/24)..slow ly trending down.BMP stable since adding lasix. Patient seen in the dining room at breakfast. Reports no complaints this morning and reports she feels good. Exam essentially benign other than BLE edema...LLE>RLE (+1-2). Tolerating lasix and will re-assess weight and fluid status on thursday. Continues to work with PT/OT, having issues with urinary incontinence (r/t lasix?) as well as continued confusion which interferes with her progress. 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 Estrace cream 3x wk recommended. PMH: HTN, Zenker's diverticulum, subclinical hypothyroidism, depression, mild cognitive impairment, s/p left hip fx [id number] tx, HLD and prolonged QTc, constipation, HTN, falls, COVID, zenkers diverticulum, CAD, CASMOLST: DNR, DNI SCOTT KWON NP [address], [address], [place], [address], [facility] - CDP 04/24/2023 12:49:41 04/27/2023 text/html [facility] She is an 87 yo lady, admitted to [facility] 04/01/23 from [facility] for continued care and rehab after a brief hosp. related to altered MS. Presented to [facility] on 03/27/23 for increased confusion, weakness, and a recent fall. Was found to have UTI. Patient was treated with IV ceftriaxone. Found to have urinary retention, hernandez placed in hospital. Hernandez removed here, voiding well. Elevated BP in hospital- losartan dose increased, amlodipine and coreg continued. BP stable so far while here. Cognition not back to baseline, metabolic encephalopathy and delirium felt related to UTI, prolonged hospital stay, and underlying dementia. Still continues with confusion here. UA C&S repeated, results neg. Issues with BLE edema - Venous US neg DVT. Started lasix 20 mg qd with improvement in swelling, but not resolved. Added extra dose of furosemide for 3 days (20mg BID x3 days).Finished 3-day course and now is on the 20mg qd, still tolerating. Wearing compression stockings to BLE.VSS.Trending weights- 127.6(2)->125.4(2 8)->124.2(2)..slow ly trending down. This past weekend the patients weight was 127 both days...although swelling seems to be improved.BMP stable since adding lasix, rechecking 04/28 Patient seen in the dining room at breakfast. Reports no complaints this morning and reports she feels good. Exam essentially benign other than BLE edema which seems improved. Last week LLE>RLE (+1-2), today it seems both legs are symmetrical in size, +1 pitting. Tolerating lasix, will continue this and monitor weights/fluid status. Continues to work with PT/OT, having issues with urinary incontinence (r/t lasix?) as well as continued confusion which interferes with her progress. 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 Estrace cream 3x wk started, seems to be helping. PMH: HTN, Zenker's diverticulum, subclinical hypothyroidism, depression, mild cognitive impairment, s/p left hip fx [id number] tx, HLD and prolonged QTc, constipation, HTN, falls, COVID, zenkers diverticulum, CAD, CASMOLST: DNR, DNI SCOTT KWON NP [address] [place] [address], [address], [place], [address], [facility] - CDP 04/27/2023 12:42:42 04/29/2023 text/html [facility].She will be going home tomorrow 04/30 with support of services. She is an 87 yo lady, admitted to [facility] 04/01/23 from [facility] for continued care and rehab after a brief hosp. related to altered MS. Presented to [facility] on 03/27/23 for increased confusion, weakness, and a recent fall. Was found to have UTI. Patient was treated with IV ceftriaxone. Found to have urinary retention, hernandez placed in hospital. Hernandez removed here, voiding well. Elevated BP in hospital- losartan dose increased, amlodipine and coreg continued. BP stable so far while here. Cognition not back to baseline upon discharge - metabolic encephalopathy and delirium felt related to UTI, prolonged hospital stay, and underlying dementia. While here, cognition has improved, doing much better. UA C&S repeated, results neg. Issues with BLE edema - BLE venous US neg DVT. Started lasix 20 mg qd with improvement in swelling, but not resolved. Now wearing tubigrip stockings to BLEs.VSS.Trending weights- ranging +/- 125 lbs.BMP stable since adding lasix. Has worked with rehab, meeting goals for d/c home at w/c level. 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 Estrace cream 3x wk started, no complaints so far. Upon exam, Ruthie is up in her w/c, alert, pleasant, in good spirits. Happy, nervous, and a little apprehensive about returning home to [facility]. Reports feeling well, has no complaints. PMH: HTN, Zenker's diverticulum, subclinical hypothyroidism, depression, mild cognitive impairment, s/p left hip fx [id number] tx, HLD and prolonged QTc, constipation, HTN, falls, COVID, zenkers diverticulum, CAD, CASMOLST: DNR, DNI SCOTT KWON NP [address], [address], [place], [address], [facility] - [facility] 04/29/2023 13:01:15 OBGyn Episode No OBEpisode recorded.
[2024-09-09] VITALS (8 sets, daily range): BP systolic 143–180; BP diastolic 60–97; PULSE 64–86; RESP 16–18; TEMP 36.1–36.7; O2SAT 95–98
[2024-09-09 06:51] LABS: MANUAL DIFF FLAG NO
[2024-09-09 06:56] LABS: Hematocrit 37.7 % (37.0-47.0); Hemoglobin 12.8 g/dl (12.0-16.0); Imm Gran Abs Auto 0.05 X10*3/uL (0.00-0.03); Imm Gran Pct Auto 0.6 % (0.0-0.4); Lymphocytes Absolute Auto 1.7 X10*3/uL (1.2-4.9); Mean Corpuscular HGB Conc 34.0 g/dl (31.0-35.0); Mean Corpuscular Hemoglobin 28.8 pg (27.0-33.0); Mean Corpuscular Volume 84.7 fL (80.0-98.0); NRBC Abs Auto 0.000 X10*3/uL (0.0-0.012); NRBC Pct Auto 0.0 /100WBC (0.0-0.2); Platelet Count 347 X10*3/uL (160-400); Red Blood Count 4.45 X10*6/uL (4.20-5.50); White Blood Count 9.1 X10*3/uL (4.8-10.8)
--- NOTE | 2024-09-09 07:00 | CA_ITS ---
Transthoracic Echocardiogram Patient (Last, First, Middle): Ruthie Alexander, Gender: Female Date of : 1935 Age: 89 Procedure Date: 09/09/2024 Procedure Type: Transthoracic Echocardiogram [place] [facility] [place] Height: 154.94 cm Weight: 50.8 kg BSA: 1.48 m2 Heart Rate: bpm BP: 143 / 65 mmHg Self Pay Specialist: Referring MD: Savita Pichardo MD Symptoms: Stroke symptoms Study Quality: Adequate ECG Rhythm: Sinus Conclusions: - The left ventricular systolic function is normal. The calculated ejection fraction is 63% by biplane method. - There is moderate septal asymmetric hypertrophy. - No obvious valvular pathology seen on this study. Findings Left Ventricle Normal left ventricular cavity size. The left ventricular systolic function is normal. The calculated ejection fraction is 63% by biplane method. There is no evidence of regional wall motion abnormalities. Diastolic function is normal for age. There is moderate septal asymmetric hypertrophy. Right Ventricle Normal right ventricular cavity size and systolic function. Atria Both atria are normal in size. Aortic Valve There is a normal trileaflet aortic valve. There is no aortic valve stenosis. Trace to mild aortic regurgitation. Mitral Valve The mitral valve appears normal. There is no mitral valve regurgitation. There is no mitral valve stenosis. Pulmonic Valve The pulmonic valve is likely normal. Tricuspid Valve There is trace tricuspid valve regurgitation. There is no evidence of pulmonary hypertension. Great Vessels The asc aorta is normal in size. Venous The inferior vena cava is normal in size and collapses greater than 50% with inspiration. Pericardium/Pleural There is no evidence of pericardial effusion. Prior Study Comparison No prior study available for comparison. Recommendations, Care & Conclusions No obvious valvular pathology seen on this study. Measurements 2D Linear Measurements IVSd: 1.44 0.6-0.9/0.6-1.0 cm LVIDd: 3.13 3.9-5.3/4.2-5.9 cm LVIDd Index: 2.11 2.4-3.2/2.2-3.1 cm/m2 LVIDs: 2.10 2.0-3.6 cm LVPWd: 1.34 0.7-1.1 cm Ao Root: 3.00 2.1-3.5 cm LA Diam: 2.40 2.7-3.8/3.0-4.0 cm LAIDs Index: 1.62 1.5-2.3 cm/m2 LV Mass: 182.79 67-162/88-224 g LV Mass Index: 123.51 43-95/49-115 g/m2 LVOT Diam: 2.00 3.0+(-)1.3 cm 2D Systolic Function EF 4C: 61.60 >55% EF 2C: 64.40 >55% EF BiP: 63.20 >55% Mitral Valve MV Pk E: 0.46 MV PK A: 0.87 MV Decel Time: 253.00 E/A: 0.50 E'Lateral: 5.11 E'Medial: 4.79 E/E' Med: 9.60 E/E' Lat: 9.00 PHT: 74.00 MVA PHT: 2.97 Decel [place]: 1.81 Aortic Valve AoV Pk [place]: 1.59 AoV Mn [place]: 1.08 AoV VTI: 0.33 AoV Pk Grad: 10.00 Aov Mn Grad: 6.00 DEEPALI Cont.VTI: 2.64 LVOT LVOT Pk [place]: 1.02 LVOT Mn [place]: 0.70 LVOT VTI: 0.28 LVOT Pk Grad: 4.00 LVOT Mn Grad: 3.00 LVOT Diam: 2.00 LVOT Area: 3.14 Diastolic Function MV Pk E: 0.46 MV Pk A: 0.87 E/A: 0.50 E'Medial: 4.79 E/E' Med: 9.60 E' Laterial: 5.11 E/E' Lat: 9.00 Right Ventricle TAPSE (mm): 21.00 Tricuspid Valve TR Pk Milton: 2.30 TR Pk Grad: 21.00 RA Press: 3.00 RVSP: 24.00 Great Vessels Aorta Ao Root-2D: 3.00 2.0-3.7 cm Ao Asc: 3.40 2.1-3.4 cm Pulmonary Valve PV Pk Milton: 0.80 Peak PV Grad: 3.00 Updated in Other Vendor System with Status of Final Wilfrido Aleman MD electronically signed on 09/10/2024 10:47:00 AM with status of Final
[2024-09-09 07:14] LABS: Anion Gap 13 (12-20); Blood Urea Nitrogen 10 mg/dL (9-16); Calcium 9.1 mg/dL (8.4-10.2); Carbon Dioxide 26 mmol/L (22-29); Chloride 106 mmol/L (96-108); Creatinine Clr Calc Pharmacy 46.5; Estimated Glomerular Filt Rate > 60; Potassium 3.5 mmol/L (3.3-5.1); Sodium 141 mmol/L (135-145)
[2024-09-09 07:17] LABS: Cholesterol 143 mg/dL (<200); HDL Cholesterol 44 mg/dL (>40); Triglycerides 77 mg/dL (<150)
[2024-09-09] MEDS: Aspirin Enteric Coated 81 MG TABLET.DR PO (08:42)
--- NOTE | 2024-09-09 09:22 | MHC.CM.PN ---
Addendum entered by Emerita Terry 09/09/24 11:24: PT is recommending STR. CM spoke with Son/HCP/Andiopher @ listed # and [facility] is his first choice. CM will continue to follow. Original Note: CM met with Patient and her Son/HCP/Christopher at bedside and addressed IMM with them, providing Son with the original and a copy has been placed on the chart. Patient lives alone @ [facility] and she receives 2 hours/day of assistance there. Home/resume FDC is the goal and CM has initiated and will follow for dc planning. PCP is Dr. Valery Dickson and Son will transport to home at time of dc.
--- NOTE | 2024-09-09 09:49 | HO.PM.IMPN ---
Subjective Subjective Date of Service: 09/09/24 Interval History: Seen and examined this morning Follow-up for right facial droop-MRI positive for acute stroke Patient awake, alert, in no acute distress. History of dementia, poor historian. Has no specific complaints at this time Constitutional Constitutional: Denies chills and Denies fever(s) Cardiovascular Cardiovascular: Denies chest pain and Denies dyspnea Respiratory Respiratory: Denies cough and Denies dyspnea Gastrointestinal Gastrointestinal: Denies abdominal pain Physical Exam Vital Signs: Vital Signs: Last Vital Signs Temp 97.5 F 09/09/24 07:42 Pulse 66 09/09/24 07:42 Resp 18 09/09/24 07:42 BP 143/65 H 09/09/24 07:42 Pulse Ox 98 09/09/24 07:42 O2 Del Method Room Air 09/09/24 07:42 BMI result Body Mass Index 20.7 Const: General: cooperative, comfortable, no acute distress, alert and awake Nutritional Appearance: average body habitus Orientation/consciousness: patient oriented x3 Resp: Effort & Inspection: normal respiratory effort, able to speak in complete sentences, no respiratory distress and no use of accessory muscles Cardio: Rate: regular rate GI: Palpation (GI): Soft to palpation Neuro: Other: right facial droop General: patient oriented x3 Objective Data Active Medications Acetaminophen (Acetaminophen 325 Mg Tablet) 975 mg PO Q6H PRN PRN Reason: Pain, Mild 1-3,fever,headache Amlodipine Besylate (Amlodipine Besylate 5 Mg Tablet) 5 mg PO DAILY [facility]; Protocol On Hold: 09/09/24 07:27 Last Admin: 09/08/24 14:45 Dose: 5 mg Documented By: SHAW Aspirin (Aspirin Enteric Coated 81 Mg Tablet.) 81 mg PO DAILY [facility] Last Admin: 09/09/24 08:42 Dose: 81 mg Documented By: KRISSY Atorvastatin Calcium (Atorvastatin Calcium 80 Mg Tablet) 80 mg PO DAILY@1999 [facility] Heparin Sodium (Porcine) (Heparin Sodium,Porcine 5,000 Unit/Ml Vial) 5,000 unit SUBCUT Q12H [facility] Labetalol HCl (Labetalol Hcl 100 Mg/20 Ml Vial) 10 mg IVPUSH Q6H PRN PRN Reason: SBP > 160 Last Admin: 09/08/24 19:48 Dose: 10 mg Documented By: RITA Losartan Potassium (Losartan Potassium 50 Mg Tablet) 50 mg PO DAILY@1999 [facility]; Protocol Last Admin: 09/08/24 17:32 Dose: 50 mg Documented By: KRISSY Melatonin (Melatonin 3 Mg Tablet) 6 mg PO BEDTIME PRN PRN Reason: Insomnia Last Admin: 09/08/24 22:08 Dose: 6 mg Documented By: RITA Labs 09/09/24 06:25 09/09/24 06:25 Labs: Laboratory Results - last 24 hr 09/08/24 09/08/24 09/08/24 11:58 12:20 12:39 MCV 84.2 MCH 28.8 MCHC 34.2 RDW 14.0 Plt Count 357 MPV 9.1 L Immature Gran % (Auto) 0.5 H Neut % (Auto) 75.5 H Lymph % (Auto) 14.5 L [place] % (Auto) 8.3 Eos % (Auto) 0.6 Baso % (Auto) 0.6 Lymph # (Auto) 1.5 [place] # (Auto) 0.9 Eos # (Auto) 0.1 Baso # (Auto) 0.1 Abs Immat Gran (auto) 0.05 H Absolute Neuts (auto) 8.0 Absolute Nucleated RBC 0.000 Nucleated RBC % (auto) 0.0 PT Whole Blood PT 11.0 L INR Whole Blood INR 0.9 APTT Anion Gap 14 Estim Creat Clear Calc 45.1 Estimated GFR > 60 POC Glucose 116 H Random Glucose 96 Calcium 9.5 Troponin I High Sens 4.8 Triglycerides 74 Cholesterol 152 LDL Cholesterol, Calc 90 HDL Cholesterol 48 09/08/24 09/09/24 12:54 06:25 MCV 84.7 MCH 28.8 MCHC 34.0 RDW 14.1 Plt Count 347 MPV 9.3 L Immature Gran % (Auto) 0.6 H Neut % (Auto) 68.2 Lymph % (Auto) 18.3 L [place] % (Auto) 10.2 Eos % (Auto) 1.9 Baso % (Auto) 0.8 Lymph # (Auto) 1.7 [place] # (Auto) 0.9 Eos # (Auto) 0.2 Baso # (Auto) 0.1 Abs Immat Gran (auto) 0.05 H Absolute Neuts (auto) 6.2 Absolute Nucleated RBC 0.000 Nucleated RBC % (auto) 0.0 PT 11.1 Whole Blood PT INR 1.0 Whole Blood INR APTT 28.4 Anion Gap 13 Estim Creat Clear Calc 46.5 Estimated GFR > 60 POC Glucose Random Glucose 92 Calcium 9.1 Troponin I High Sens Triglycerides 77 Cholesterol 143 LDL Cholesterol, Calc 84 HDL Cholesterol 44 Assessment and Plan (1) Cerebrovascular accident: Status: Acute Plan This is an 89 y/o female with history of dementia, HTN who presented with facial droop found to have elevated blood pressure Acute stroke probable significant stenosis of the right cavernous internal carotid artery brain MRI Continue aspirin, increase dose of atorvastatin PT/OT/speech eval pending neuro consult pending Hypertensive emergency. bp very high on arrival. am bp 143/65 hold bp meds to allow for permissive hypertension in the setting of acute stroke hold Norvasc, losartan prn Labetalol 10 mg IV as needed systolic blood pressure above 160. DVT prophylaxis: Heparin Code status: Full Patient requires ongoing inpatient hospitalization for neurological evaluation, blood pressure control/monitoring and specialist evaluation Quality Stroke Does the patient have a stroke diagnosis?: No VTE Prior VTE?: No VTE Risk Level:: Medical - moderate - high VTE Device Contraindication: Treatment Not Indicated VTE Drug Contraindication: N/A - Med Ordered
--- NOTE | 2024-09-09 11:05 | PM.NEUROCN ---
History of Present Illness Data of Consult Service Date: 09/09/24 Primary Care Provider: ROGER CHANDLER MD [facility] Reason for consult: Cerebral infarction 89 years old woman with underlying moderate to severe multifactorial, degenerative +vascular, dementia and uncontrolled hypertension who was brought to hospital with complain of facial asymmetry. Her evaluation revealed a small acute ischemic infarct on brain MRI. She denied any headache or any recent cold or flu-like illness or any right ear symptom. Review of Systems Review of Systems: No recent cold or flu-like illness or headache no ringing in ear or ear pain or ear infection PMFSH Past Medical History Medical History (Updated 09/09/24 @ 11:07 by Brooke Walters MD) Essential hypertension Social History Social History Household Members: Other Housing: Assisted Living Facility Do you presently have visiting nurse or other home services: Yes Patient Tobacco Use Status: Former Tobacco user Advance Directives Date on File: 09/08/24 service: No Meds Allergies Allergy/AdvReac Type Severity Reaction Status Date / Time No Known Allergies Allergy Verified 09/08/24 12:16 Active Medications: Current Medications Acetaminophen (Acetaminophen 325 Mg Tablet) 975 mg PO Q6H PRN PRN Reason: Pain, Mild 1-3,fever,headache Amlodipine Besylate (Amlodipine Besylate 5 Mg Tablet) 5 mg PO DAILY [facility]; Protocol On Hold: 09/09/24 07:27 Last Admin: 09/08/24 14:45 Dose: 5 mg Aspirin (Aspirin Enteric Coated 81 Mg Tablet.) 81 mg PO DAILY [facility] Last Admin: 09/09/24 08:42 Dose: 81 mg Atorvastatin Calcium (Atorvastatin Calcium 80 Mg Tablet) 80 mg PO DAILY@1999 [facility] Heparin Sodium (Porcine) (Heparin Sodium,Porcine 5,000 Unit/Ml Vial) 5,000 unit SUBCUT Q12H [facility] Labetalol HCl (Labetalol Hcl 100 Mg/20 Ml Vial) 10 mg IVPUSH Q6H PRN PRN Reason: SBP > 160 Last Admin: 09/08/24 19:48 Dose: 10 mg Losartan Potassium (Losartan Potassium 50 Mg Tablet) 50 mg PO DAILY@1999 [facility]; Protocol Last Admin: 09/08/24 17:32 Dose: 50 mg Melatonin (Melatonin 3 Mg Tablet) 6 mg PO BEDTIME PRN PRN Reason: Insomnia Last Admin: 09/08/24 22:08 Dose: 6 mg Home Medications ?Medication ?Instructions ?Recorded ?Confirmed ?Last Taken ?Type acetaminophen 325 mg tablet 650 mg PO Q8H PRN Fever Or Pain 09/08/24 09/08/24 Unknown History aspirin 81 mg tablet 81 mg PO DAILY 09/08/24 09/08/24 Unknown History atorvastatin 40 mg tablet 40 mg PO DAILY@199909/08/24 09/08/24 Unknown History ibuprofen 200 mg tablet 200 mg PO DAILY PRN Pain 09/08/24 09/08/24 Unknown History losartan 50 mg tablet 50 mg PO DAILY@199909/08/24 09/08/24 Unknown History Physical Exam Vital Signs: Vital Signs: Last Vital Signs Temp 97.5 F 09/09/24 07:42 Pulse 66 09/09/24 09:40 Resp 18 09/09/24 07:42 BP 143/65 H 09/09/24 09:40 Pulse Ox 98 09/09/24 09:40 O2 Del Method Room Air 09/09/24 07:42 BMI result Body Mass Index 20.7 Neuro: Other: She is alert and awake with normal spontaneity of speech fluency comprehension and flat affect. There is moderate peripheral type right facial weakness. Extraocular muscles are intact. Visual somers are full. There was no pronator drift. Deep tendon reflexes are trace to absent with flexor plantars. Speech is normal. Results Labs 09/09/24 06:25 09/09/24 06:25 Labs: Short CBC 09/08/24 09/09/24 Range/Units 12:39 06: WBC 10.6 9.1 (4.8-10.8) X10*3/uL Hgb 13.3 12.8 (12.0-16.0) g/dl Hct 38.9 37.7 (37.0-47.0) % Plt Count 357 347 (160-400) X10*3/uL BMP 09/08/24 09/09/24 12:39 06:25 Sodium 138 141 Potassium 3.5 3.5 Chloride 105 106 Carbon Dioxide 23 26 BUN 10 10 Creatinine 0.65 0.63 Calcium 9.5 9.1 MRI of brain revealed moderate to severe diffuse cerebral atrophy extensive chronic microvascular ischemic changes and a small area of subcortical left frontal acute ischemic infarction. 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 Mainstay of management is blood pressure control, anti-platelet agent such as baby aspirin daily or [id number] and control of any other vascular risk factor. Procedures Date of Service Date of Service: 09/09/24
--- NOTE | 2024-09-09 11:26 | MHC.SP.ADU ---
Referring provider: Savita Pichardo Reason for Referral: Stroke alert Type of Treatment: 01306 Clinical Swallowing Evaluation Date of Plan of Treatment: 09/09/24 Onset of Symptoms/Illness: 09/08/24 Date Treatment Started: 09/09/24 Medical Diagnosis: Stroke Primary Speech Language Diagnosis: R13.11 Oral Phase Dysphagia Secondary Speech Language Diagnosis: R47.01 Aphasia History Patient is an 89 year old female w/ underlying moderate to severe multifactorial, degenerative +vascular, dementia and uncontrolled hypertension, brought to the ED from living facility for concerns of facial droop. R-side facial droop was appreciated upon patient's arrival to the hospital, slurred speech improved, per early childhood coordinator patient was speaking in full clear sentences. 09/08 brain MRI showed, Small acute infarction in the left frontal lobe measures up to 1.2 cm. Medical History: Other: Dementia, HTN Current Living Situation: [facility] Swallowing History: Dysphagia Specific: Risk of Aspiration Oral Phase Dysphagia Dysphagia Following CVA Comments: Patient was able to feed herself without difficulty. When taking sips of water by cup, note consistent spilling from the R-mouth d/t weak labial seal. Patient tolerated teaspoon sips without further spillage and without any overt signs of aspiration. Patient tolerated bites of applesauce with timely oral management and complete clearance. When given a stefania cracker, patient grimaced as she attempted to take a bite. Note anterior spilling of dry crumbs and disorganized chewing pattern. Patient took a sip of liquid after each bite, then demonstrating good clearance. Patient's son reports that this is new and patient was previously managing regular textures without difficulty. Recommend CHOPPED/ADVANCED (NDD3) solids with THIN liquids (better containment when drinking from a spoon), pills WHOLE in LIQUID or PUREE, periodic check-in to monitor progression through meal. Diet order adjusted per LEARNING DESIGNER. RN, PA, & RD notified via [facility] Message. Pre-eval Risk for Aspiration: Neurological Condition Pre-evaluation Dietary Consistencies: Regular Pre-eval Liquid Intake: Thin Pre-eval Medication Intake: Whole with Liquid Assessment Speech Production: Garbled Clinical Impression: Impaired Observations: Patient with mild dysarthria and garbled speech quality, R-side facial droop apparent at rest and with labial retraction. Patient exhibits difficulty producing plosive sounds, consonant clusters, and multisyllabic words, especially in connected speech or when pressed for time (i.e. speaking quickly). Tests of Speech & Lang Adults: BNT Clinical Impression: Impaired Observations: Patient correctly named 7 out of 15 images on the [place] Naming Test Short Form. Patient groped for words, stating, I know that word as well as I know my own name, but I can't think of it. Patient also produced some semantic paraphasias, (i.e. naming [place] as squirrel ), of which she was aware and made attempts to correct. Patient was able to name items when provided with phonemic cues and sentence completion cues. Patient was also able to recognize words from a choice of 4. Patient's son reports that patient's aphasia is also new. Impressions and Recommendations Summary: Patient w/ underlying dementia presents with mild dysarthria, mild aphasia, and mild oral phase dysphagia. + R-side facial droop, acute CVA left frontal lobe. Recommend continued speech therapy during inpatient stay and at the next level of care. Recommendation for Speech Therapy: Inpatient Speech Therapy Speech Therapy through Rehab Facility Frequency/Duration: M-F while inpatient Date Range for Service Requested: Time to Reassess: PRN Patient Education: Completed: Yes Patient/Caregiver Education: Described Results of Evaluation Patient expressed understanding of evaluation Family/Caregivers expressed understanding of results Patient requires further education on strategies Comments/Barriers to Learning: Post Commander Clinican/Clinical Fellow: No Supervisory Statement: N/A Speech Language Pathologist: Betina Whaley M.A., CCC-LEARNING DESIGNER
--- NOTE | 2024-09-09 12:17 | PM.CNGS ---
History of Present Illness Consult details Consult date: 09/09/24 Reason for consult: other (Carotid stenosis) Narrative: Very pleasant 89-year-old female presents for evaluation regarding carotid stenosis. She is from an assisted living facility and was noted to have left facial droop. She has a prior history of hypertension and dementia. During the admission she denied any visual or speech disturbances weakness in arm or leg. She was subsequently worked up with CT and MRI. CT was concerning for right-sided carotid stenosis. MRI was positive for small acute infarct in the left frontal lobe. 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 She now presents for vascular evaluation. Review of Systems Review of Systems: Yes all other systems are reviewed and are negative Constitutional: Constitutional: Reports no additional constitutional complaints ENT: Reports Normal hearing present Cardiovascular: Cardiovascular: Denies chest pain, Denies chest pain at rest, Denies chest pain with activity and Denies pedal edema Respiratory: Respiratory: Denies cough Gastrointestinal: Gastrointestinal: Denies abdominal pain Musculoskeletal: Musculoskeletal: Denies abnormal gait, Denies muscle cramps and Denies radiating pain into limb Integumentary/Breasts: Skin/Breast: Denies skin ulcer and Denies wounds Neurologic: Reports Normal hearing present and Denies abnormal gait Psychiatric: Psychiatric: Reports no additional psychiatric complaints PMF Past Medical History Medical History (Updated 09/09/24 @ 12:20 by John Cameron MD) Essential hypertension Social History Social History Household Members: Other Housing: Assisted Living Facility Do you presently have visiting nurse or other home services: Yes Patient Tobacco Use Status: Former Tobacco user Advance Directives Date on File: 09/08/24 service: No Meds Allergies Allergy/AdvReac Type Severity Reaction Status Date / Time No Known Allergies Allergy Verified 09/08/24 12:16 Active Medications: Current Medications Acetaminophen (Acetaminophen 325 Mg Tablet) 975 mg PO Q6H PRN PRN Reason: Pain, Mild 1-3,fever,headache Amlodipine Besylate (Amlodipine Besylate 5 Mg Tablet) 5 mg PO DAILY [facility]; Protocol On Hold: 09/09/24 07:27 Last Admin: 09/08/24 14:45 Dose: 5 mg Aspirin (Aspirin Enteric Coated 81 Mg Tablet.) 81 mg PO DAILY [facility] Last Admin: 09/09/24 08:42 Dose: 81 mg Atorvastatin Calcium (Atorvastatin Calcium 80 Mg Tablet) 80 mg PO DAILY@1999 [facility] Heparin Sodium (Porcine) (Heparin Sodium,Porcine 5,000 Unit/Ml Vial) 5,000 unit SUBCUT Q12H [facility] Labetalol HCl (Labetalol Hcl 100 Mg/20 Ml Vial) 10 mg IVPUSH Q6H PRN PRN Reason: SBP > 160 Last Admin: 09/08/24 19:48 Dose: 10 mg Losartan Potassium (Losartan Potassium 50 Mg Tablet) 50 mg PO DAILY@1999 [facility]; Protocol Last Admin: 09/08/24 17:32 Dose: 50 mg Melatonin (Melatonin 3 Mg Tablet) 6 mg PO BEDTIME PRN PRN Reason: Insomnia Last Admin: 09/08/24 22:08 Dose: 6 mg Home Medications ?Medication ?Instructions ?Recorded ?Confirmed ?Last Taken ?Type acetaminophen 325 mg tablet 650 mg PO Q8H PRN Fever Or Pain 09/08/24 09/08/24 Unknown History aspirin 81 mg tablet 81 mg PO DAILY 09/08/24 09/08/24 Unknown History atorvastatin 40 mg tablet 40 mg PO DAILY@199909/08/24 09/08/24 Unknown History ibuprofen 200 mg tablet 200 mg PO DAILY PRN Pain 09/08/24 09/08/24 Unknown History losartan 50 mg tablet 50 mg PO DAILY@199909/08/24 09/08/24 Unknown History Physical Exam Vital Signs: Vital Signs: Last Vital Signs Temp 98.0 F 09/09/24 12:00 Pulse 64 09/09/24 12:00 Resp 18 09/09/24 12:00 BP 160/75 H 09/09/24 12:00 Pulse Ox 95 09/09/24 12:00 O2 Del Method Room Air 09/09/24 12:00 BMI result Body Mass Index 20.7 Const: General: cooperative, healthy appearing and comfortable Orientation/consciousness: oriented to person, oriented to place and oriented to time HEENT: Head: Yes normal to inspection Neck: Neck: Yes normal visual inspection Carotids: no bruits Chest: Chest palpation & inspection: normal inspection of the chest Resp: Effort & Inspection: normal respiratory effort and able to speak in complete sentences Auscultation: clear to auscultation bilaterally, no crackles, no rales, no rhonchi and no wheezes Cardio: Rate: regular rate Rhythm: regular rhythm Heart sounds: S1 normal heart sound present and S2 normal heart sound present Bruits: no carotid bruits Peripheral pulses: Peripheral pulses 2+ throughout GI: Inspection: Yes normal to inspection Skin: Wounds: no wounds Hair: normal Neuro: General: oriented to person, oriented to place and oriented to time Cranial nerves: Yes CN's II-XII intact bilaterally and Yes Normal hearing present Cognition (Neuro): normal cognition Motor exam (neuro): 5/5 motor strength present throughout Extrem: Other: venous exam: No significant superficial varicosities or spider telangiectasias, minimal edema General: No clubbing, No cyanosis and No edema Psych: Appearance: grossly normal Mental Status: mental status grossly normal Speech and movement: Normal speech and movement present Results Labs 09/09/24 06:25 09/09/24 06: Labs: Abnormal lab results 09/08/24 09/08/24 09/08/24 Range/Units 11:58 12:20 12:39 MPV 9.1 L (9.4-12.3) fL Immature Gran % (Auto) 0.5 H (0.0-0.4) % Neut % (Auto) 75.5 H (45-73) % Lymph % (Auto) 14.5 L (20-40) % Abs Immat Gran (auto) 0.05 H (0.00-0.03) X10*3/uL Whole Blood PT 11.0 L (11.1-13.5) sec POC Glucose 116 H (60-115) mg/dL 09/09/24 Range/Units 06:25 MPV 9.3 L (9.4-12.3) fL Immature Gran % (Auto) 0.6 H (0.0-0.4) % Neut % (Auto) (45-73) % Lymph % (Auto) 18.3 L (20-40) % Abs Immat Gran (auto) 0.05 H (0.00-0.03) X10*3/uL Whole Blood PT (11.1-13.5) sec POC Glucose (60-115) mg/dL Short CBC 09/08/24 09/09/24 Range/Units 12:39 06:25 WBC 10.6 9.1 (4.8-10.8) X10*3/uL Hgb 13.3 12.8 (12.0-16.0) g/dl Hct 38.9 37.7 (37.0-47.0) % Plt Count 357 347 (160-400) X10*3/uL BMP 09/08/24 09/09/24 12:39 06:25 Sodium 138 141 Potassium 3.5 3.5 Chloride 105 106 Carbon Dioxide 23 26 BUN 10 10 Creatinine 0.65 0.63 Calcium 9.5 9.1 All other labs normal. Assessment and Plan (1) Carotid stenosis, bilateral: Status: Acute Plan In short there is concern that this patient may have carotid stenosis that may have contributed to the stroke. From my preliminary review the CAT scan did not appear to be significantly stenosed of the carotids. I have requested a reread of the CAT scan in addition I have requested carotid ultrasound which is being done at the current time. Patient is being maintained on aspirin and high-dose statin. We will follow up on testing once this is completed. We would like to manage her conservatively as possible due to her overall age and dementia. Thank you for allowing us to assist in her care. If there are any questions or concerns please do not hesitate to contact us. Procedures Date of Service Date of Service: 09/09/24
--- NOTE | 2024-09-09 15:31 | MHC.STROKE ---
Met with patient and granddaughter in room 457. Reviewed stroke dx and care with patient and family All questions answered. Discharge planning discussed. Pt is in good spirits. Anxious to get home. Pleasantly engaged in conversation. Pt forgetful and repeats questions and stories.
[2024-09-09] MEDS: diazePAM 10 MG/2 ML CARTRIDGE 5 MG IVPUSH (22:26)
--- NOTE | 2024-09-09 22:30 | PC.NURSE ---
Pt with increased confusion and agitation, attempting to get out of bed every 5-10 minutes. Pt pulled out R forearm IV. Remaining IV intact and wrapped with gauze. Provider Jon notified, 5mg IVP valium ordered and administered per MAR with good effect.
[2024-09-10 03:38] VITALS: BP 160/70; PULSE 69; RESP 16; TEMP 36.2; O2SAT 94
[2024-09-10 07:49] VITALS: BP 175/79; PULSE 77; RESP 18; TEMP 36.2; O2SAT 100
[2024-09-10 09:35] VITALS: BP 175/79
--- NOTE | 2024-09-10 10:17 | P.PNIM_ITS ---
Subjective Subjective Date of Service: 09/10/24 Interval History: Seen and examined this morning Follow-up for acute stroke Had episode of agitation overnight Patient awake, alert this morning; anxious Review of Systems Review of Systems: Yes all other systems are reviewed and are negative Constitutional Constitutional: Denies chills and Denies fever(s) Cardiovascular Cardiovascular: Denies chest pain, Denies palpitations and Denies dyspnea Respiratory Respiratory: Denies cough and Denies dyspnea Endocrine Endocrine: Denies palpitations Physical Exam 2 Vital Signs: Vital Signs: Last Vital Signs Temp 97.1 F 09/10/24 07:49 Pulse 77 09/10/24 07:49 Resp 18 09/10/24 07:49 BP 175/79 H 09/10/24 09:35 Pulse Ox 100 09/10/24 07:49 O2 Del Method Room Air 09/10/24 07:49 BMI result Body Mass Index 20.7 Const: Other: anxious, forgetful General: cooperative, comfortable, no acute distress, alert and awake N utritional Appearance: average body habitus Resp: Effort & Inspection: normal respiratory effort, able to speak in complete sentences, no respiratory distress and no use of accessory muscles Cardio: Rate: regular rate GI: Palpation (GI): Soft to palpation Neuro: Other: right facial droop General: moves all extremities Objective Data Active Medications Acetaminophen (Acetaminophen 325 Mg Tablet) 975 mg PO Q6H PRN PRN Reason: Pain, Mild 1-3,fever,headache Amlodipine Besylate (Amlodipine Besylate 5 Mg Tablet) 5 mg PO DAILY [facility]; Protocol Last Admin: 09/10/24 09:35 Dose: 5 mg Documented By: RAVINDRA Aspirin (Aspirin 81 Mg Tab.Chew) 81 mg PO DAILY [facility] Atorvastatin Calcium (Atorvastatin Calcium 80 Mg Tablet) 80 mg PO DAILY@1999 [facility] Last Admin: 09/09/24 20:39 Dose: 80 mg Documented By: NUBIA Heparin Sodium (Porcine) (Heparin Sodium,Porcine 5,000 Unit/Ml Vial) 5,000 unit SUBCUT Q12H [facility] Last Admin: 09/10/24 09:36 Dose: 5,000 unit Documented By: RAVINDRA Labetalol HCl (Labetalol Hcl 100 Mg/20 Ml Vial) 10 mg IVPUSH Q6H PRN PRN Reason: SBP > 160 Last Admin: 09/08/24 19:48 Dose: 10 mg Documented By: RITA Losartan Potassium (Losartan Potassium 50 Mg Tablet) 50 mg PO DAILY@1999 [facility]; Protocol Last Admin: 09/09/24 20:40 Dose: 50 mg Documented By: NUBIA Melatonin (Melatonin 3 Mg Tablet) 6 mg PO BEDTIME PRN PRN Reason: Insomnia Last Admin: 09/08/24 22:08 Dose: 6 mg Documented By: RITA Labs 09/09/24 06:25 09/09/24 06:25 Assessment and Plan (1) Carotid stenosis, bilateral: Status: Acute (2) Cerebrovascular accident: Status: Acute Plan This is an 89 y/o female with history of dementia, HTN who presented with facial droop found to have elevated blood pressure Acute stroke MRI positive for acute infarction in the left frontal lobe (also with old small infarct of the left parietal occipital junction and moderate to marked small- vessel ischemic disease) CTA with concern for carotic stenosis, carotid US with 50-79% on left. seen by vascular - rec conservative management Continue aspirin, increase dose of atorvastatin PT/OT - rect STR speech eval - rec NDD3 diet with thin liquids neuro consult -rec baby aspirin, statin, blood pressure control Hypertensive emergency. bp very high on arrival. am bp 143/65 resume norvasc, losartan follow bp closely prn Labetalol 10 mg IV as needed systolic blood pressure above 160. dementia Multifactorial degenerative and vascular trial low dose risperidone at bedtime for anxiety DVT prophylaxis: Heparin Code status: Full Patient requires ongoing inpatient hospitalization for neurological evaluation, blood pressure control/monitoring and specialist evaluation Quality Stroke Does the patient have a stroke diagnosis?: No VTE Prior VTE?: No VTE Risk Level:: Medical - moderate - high VTE Device Contraindication: Treatment Not Indicated VTE Drug Contraindication: N/A - Med Ordered
[2024-09-10 12:00] VITALS: BP 183/82; PULSE 88; RESP 20; TEMP 36.2; O2SAT 99
[2024-09-10 16:00] VITALS: BP 187/88; PULSE 99; RESP 20; TEMP 36.2; O2SAT 96
[2024-09-10 19:50] VITALS: BP 160/105; PULSE 107; RESP 16; TEMP 36.4; O2SAT 96
[2024-09-11] VITALS (10 sets, daily range): BP systolic 131–181; BP diastolic 74–105; PULSE 85–107; RESP 16–18; TEMP 36–37.6; O2SAT 96–100
--- NOTE | 2024-09-11 09:33 | PM.DS ---
DS: Providers Provider Date of Service: 09/12/24 Date of admission: 09/08/24 13:37 Date of discharge: 09/12/24 Primary care physician: ROGER CHANDLER MD Consults: 09/08/24 14:29 Consult to Neurology Routine Consulting Provider: Priya Loyd Reason for consultation: Right facial paralysis Has provider been notified: Yes 09/09/24 07:24 Consult to Vascular Surgery Routine Consulting Provider: [facility] [place] [facility] Services Reason for consultation: carotid stenosis, acute stroke Has provider been notified: No Attending physician on discharge: Papo Becerra Discharging clinician: Kasia Perez DS: Diagnosis Discharge Diagnosis (1) Carotid stenosis, bilateral: Status: Acute (2) Cerebrovascular accident: Status: Acute DS: Summary Hospital Course Hospital Course: From H&P on the day of admission Ruthie Alexander is 89 years old woman with past medical history significant for essential hypertension and dementia was brought to the emergency department from her assisted living facility after she was noted to have left facial droop. HPI was partially provided by patient's son who was at bedside due to patient's dementia. There is no reported headache, acute visual disturbances, legs or and weakness, palpitations, loss of consciousness or slurred speech. Patient denied any acute gastrointestinal or genitourinary symptoms. She has no history of tobacco smoking, alcohol abuse or illicit drug use. In the ED, she was found to have elevated vital signs (max 231/116). Last blood pressure is 201/90. Other vital signs are normal. Blood workup CBC and BNP are unremarkable. LFTs are normal. INR is 1.0. Head CT scan without contrast showed no acute intracranial abnormality. Head and neck CTA showed probable significant stenosis of the right cavernous internal carotid artery, no large vessel occlusion on aneurysms. CXR showing coarse interstitial marking in the left lung base, probably chronic versus early pneumonia. ECG showed normal sinus rhythm with PVCs, and right bundle branch block. ED tx: Labetalol 10 mg IV total, aspirin 325 mg p.o., metoprolol 100 mg p.o Acute stroke MRI positive for acute infarction in the left frontal lobe (also with old small infarct of the left parietal occipital junction and moderate to marked small-vessel ischemic disease) CTA with concern for carotic stenosis, carotid US with 50-79% on left. seen by vascular, reccommended conservative management. Continue aspirin, increased dose of atorvastatin. Seen by PT/OT who rec STR. speech eval rec NDD3 diet with thin liquids. seen by neuro -rec baby aspirin, statin, blood pressure control. Echocardiogram with preserved ejection fraction, no obvious valvular pathology. Hypertensive emergency. bp very high on arrival. Continued on baseline losartan and started on low-dose Norvasc. Blood pressure has been improved. May need further titration as outpatient. dementia Multifactorial degenerative and vascular Time Attestation Total time managing care of this patient today: 36 mintues. Discharge Coordination Time (in mins): 36 Quality: Safe Use of Opioids Does Pt have an Active Cancer Diagnosis on the Problem List?: No Quality: Stroke Does the patient have a stroke diagnosis?: Yes Reason for No Anti-thrombotic at DC: N/A - Med Ordered Reason for No Anticoagulant at DC: Not indicated Reason Not Initiating IV-Tpa: Not indicated Reason for No Anti-thrombotic by Day Two: N/A - Med Ordered Reason for No Statin at DC: N/A - Med Ordered Physical Exam Vital Signs: Vital Signs: Last Vital Signs Temp 99.7 F 09/11/24 07:20 Pulse 85 09/11/24 07:20 Resp 16 09/11/24 07:20 BP 154/78 H 09/11/24 07:20 Pulse Ox 98 09/11/24 07:20 O2 Del Method Room Air 09/11/24 07:20 BMI result Body Mass Index 20.7 Const: Other: anxious, forgetful General: cooperative, comfortable, no acute distress, alert and awake Nutritional Appearance: average body habitus Orientation/consciousness: patient oriented x3 Resp: Effort & Inspection: normal respiratory effort, able to speak in complete sentences, no respiratory distress and no use of accessory muscles Cardio: Rate: regular rate GI: Palpation (GI): Soft to palpation Neuro: Other: right facial droop General: patient oriented x3 and moves all extremities Discharge Plan Discharge Anticipated Discharge Date/Time: 09/11/24 09:38 Patient Disposition: Home Health Service Discharge Diagnosis: acute stroke Uncontrolled blood pressure Referrals: ROGER CHANDLER [Primary Care Provider, Family Practice] - 1 Week Discharge Medications: New amlodipine 5 mg Tablet 5 mg PO DAILY 90 Days Qty: 90 0RF Protocol: Hold for SBP< HOLD for SBP < : 90 atorvastatin 80 mg Tablet 80 mg PO DAILY@1999 90 Days Qty: 90 0RF Continued losartan 50 mg tablet 50 mg PO DAILY@1999 aspirin 81 mg Tablet 81 mg PO DAILY acetaminophen 325 mg Tablet 650 mg PO Q8H PRN (Reason: Fever Or Pain) ibuprofen 200 mg Tablet 200 mg PO DAILY PRN (Reason: Pain) Discontinued atorvastatin 40 mg tablet 40 mg PO DAILY@1999 Discharge Orders: Discharge Order (Routine); Ordered 09/12/24 Ordered By: Kasia Perez Activity on Discharge: As tolerated Stand Alone Forms: Patient Portal Discharge page Print Language: Syriac Care Plan Goals: See below Health Concerns: Acute stroke Bilateral carotid stenosis Uncontrolled hypertension Plan of Treatment: Dose of atorvastatin has been increased to 80 mg daily Amlodipine 5 mg has been added to control blood pressure Call to schedule follow-up appointment with PCP Recommend ongoing PT, OT, speech therapy Speech therapist has recommended NDD3 (chopped diet) Assessment: See discharge summary
--- NOTE | 2024-09-11 16:44 | MHC.CM.PN ---
MOON MET WITH PTS SON/HCP, POONAM, AT BEDSIDE YESTERDAY MORNING HE REPORTS HE WILL BE AWAY FOR THE DAY AND IS WORRIED ABOUT PT GOING TO ANOTHER SNF [facility] WAS PREFERRED, HOWEVER DID NOT HAVE A BED TO OFFER OVER THE WEEKEND POONAM STATES HE WOULD PREFER PT GO BACK TO [place] WITH [facility] IF SHE CANNOT GO TO [facility] BUT ASKED THAT IT HAPPEN TODAY SO HE COULD BE PRESENT. [facility] PTS REFERRAL, HOWEVER AFTER SPEAKING TO [facility] AND REVIEWING PTS PT [facility], IT WAS AGREED UPON THAT SHE WAS NOT WELL ENOUGH FOR THAT LOC YET. LADY WILL CONTACT [facility] REGARDING A BED FOR THURSDAY, CM ALSO SENT MESSAGES VIA [facility], HOWEVER THEY HAVE NOT RESPONDED YET. SON UNDERSTANDS IF [facility] DOES NOT OFFER A BED FOR TOMORROW, AN ALTERNATE SNF WILL HAVE TO BE SECURED.
[2024-09-12 03:54] VITALS: BP 142/84; PULSE 86; RESP 18; TEMP 36.4; O2SAT 98
[2024-09-12 07:47] VITALS: BP 162/78; PULSE 87; RESP 14; TEMP 36.8; O2SAT 100
--- NOTE | 2024-09-12 10:33 | P.PNIM_ITS ---
Subjective Subjective Date of Service: 09/12/24 Interval History: Seen and examined this morning Follow-up for stroke, uncontrolled hypertension Patient awake, alert, right-sided facial droop remained. Patient continues to remain forgetful. reason for admission and plan reiterated Constitutional Constitutional: Denies chills and Denies fever(s) Physical Exam 2 Vital Signs: Vital Signs: Last Vital Signs Temp 98.3 F 09/12/24 07:47 Pulse 87 09/12/24 07:47 Resp 14 09/12/24 07:47 BP 162/78 H 09/12/24 07:47 Pulse Ox 100 09/12/24 07:47 O2 Del Method Room Air 09/12/24 07:47 BMI result Body Mass Index 20.7 Const: Other: anxious, forgetful General: cooperative, comfortable, no acute distress, alert and awake N utritional Appearance: average body habitus Orientation/consciousness: p atient oriented x3 Resp: Effort & Inspection: normal respiratory effort, able to speak in complete sentences, no respiratory distress and no use of accessory muscles Cardio: Rate: regular rate GI: Palpation (GI): Soft to palpation Neuro: Other: right facial droop General: patient oriented x3 and moves all extremities Objective Data Active Medications Acetaminophen (Acetaminophen 325 Mg Tablet) 975 mg PO Q6H PRN PRN Reason: Pain, Mild 1-3,fever,headache Amlodipine Besylate (Amlodipine Besylate 5 Mg Tablet) 5 mg PO DAILY [facility]; Protocol Last Admin: 09/12/24 09:28 Dose: 5 mg Documented By: KRISSY Artificial Tears (Artificial Tears 15 Ml Drops) 2 drop EYE-RIGHT Q4H PRN PRN Reason: Dry Eyes Aspirin (Aspirin 81 Mg Tab.Chew) 81 mg PO DAILY [facility] Last Admin: 09/12/24 09:28 Dose: 81 mg Documented By: KRISSY Atorvastatin Calcium (Atorvastatin Calcium 80 Mg Tablet) 80 mg PO DAILY@1999 [facility] Last Admin: 09/11/24 21:50 Dose: 80 mg Documented By: MOOK Heparin Sodium (Porcine) (Heparin Sodium,Porcine 5,000 Unit/Ml Vial) 5,000 unit SUBCUT Q12H [facility] Last Admin: 09/12/24 09:29 Dose: 5,000 unit Documented By: KRISSY Labetalol HCl (Labetalol Hcl 100 Mg/20 Ml Vial) 10 mg IVPUSH Q6H PRN PRN Reason: SBP > 160 Last Admin: 09/08/24 19:48 Dose: 10 mg Documented By: RITA Losartan Potassium (Losartan Potassium 50 Mg Tablet) 50 mg PO DAILY@1999 [facility]; Protocol Last Admin: 09/11/24 21:49 Dose: 50 mg Documented By: MOOK Melatonin (Melatonin 3 Mg Tablet) 6 mg PO BEDTIME PRN PRN Reason: Insomnia Last Admin: 09/11/24 21:50 Dose: 6 mg Documented By: MOOK Risperidone (Risperidone 0.25 Mg Tablet) 0.25 mg PO BEDTIME PRN PRN Reason: Anxiety Last Admin: 09/11/24 21:49 Dose: 0.25 mg Documented By: MOOK Labs 09/09/24 06:25 09/09/24 06:25 Assessment and Plan (1) Cerebrovascular accident: Status: Acute (2) Facial paralysis on right side: Status: Acute (3) Carotid stenosis, bilateral: Status: Acute Plan This is an 89 y/o female with history of dementia, HTN who presented with facial droop found to have elevated blood pressure Acute stroke MRI positive for acute infarction in the left frontal lobe (also with old small infarct of the left parietal occipital junction and moderate to marked small- vessel ischemic disease) CTA with concern for carotic stenosis, carotid US with 50-79% on left. seen by vascular - rec conservative management Continue aspirin, increased dose of atorvastatin PT/OT - rect STR, awaiting bed speech eval - rec NDD3 diet with thin liquids neuro consult -rec baby aspirin, statin, blood pressure control Hypertensive emergency. bp very high on arrival. bp improving resume norvasc, losartan follow bp closely dementia Multifactorial degenerative and vascular trial low dose risperidone at bedtime for anxiety DVT prophylaxis: Heparin Code status: Full Patient requires ongoing inpatient hospitalization for neurological evaluation, blood pressure control/monitoring and specialist evaluation Quality Stroke Does the patient have a stroke diagnosis?: Yes Reason for No Anti-thrombotic by Day Two: N/A - Med Ordered VTE Prior VTE?: No VTE Risk Level:: Medical - moderate - high VTE Device Contraindication: Treatment Not Indicated VTE Drug Contraindication: N/A - Med Ordered
--- NOTE | 2024-09-12 10:56 | MHC.CM.PN ---
Patient will dc to [facility] tomorrow at 11 AM, via [facility]. Patient has Dementia; CM spoke with Son/HCP/Howard @ [phone] and addressed IMM with him (original will be mailed certified letter to Son and a copy has been placed on the chart). Son is aware of and pleased with the dc plan.
[2024-09-12 11:36] VITALS: BP 140/80; PULSE 95; RESP 16; TEMP 36; O2SAT 99
--- NOTE | 2024-09-12 12:25 | MHC.SP.ADU ---
Addendum entered and electronically signed by Aditi Moralez MS, CCC-LEAD MACHINIST 09/12/24 12:38: Initial evaluation 09/09, followup tx 09/12. Marked improvements in motor speech intelligibility and word finding in conversation evident. Pt tolerating NDD3 diet with thin liquids, slight diet downgrade d/t R sided facial weakness. Pt in agreement with skilled ST tx at the next setting to address dysarthria and dysphagia. Original Note: Referring provider: Savita Pichardo Reason for Referral: Stroke alert Type of Treatment: 63078 Clinical Swallowing Evaluation Date of Plan of Treatment: 09/09/24 Onset of Symptoms/Illness: 09/08/24 Date Treatment Started: 09/09/24 Medical Diagnosis: Stroke Primary Speech Language Diagnosis: R13.11 Oral Phase Dysphagia Secondary Speech Language Diagnosis: R47.01 Aphasia History Patient is an 89 year old female w/ underlying moderate to severe multifactorial, degenerative +vascular, dementia and uncontrolled hypertension, brought to the ED from living facility for concerns of facial droop. R-side facial droop was appreciated upon patient's arrival to the hospital, slurred speech improved, per trade show coordinator patient was speaking in full clear sentences. 09/08 brain MRI showed, Small acute infarction in the left frontal lobe measures up to 1.2 cm. Medical History: Other: Dementia, HTN Medication List: Recent Hospitalizations: Respiratory Needs: Room Air Patient Orientation: Social History: Employment Status: Highest level of education obtained: Current Living Situation: [facility] Assistive Devices in use: Comment: Past Speech Language Therapy: Other Therapies Seen in Current Calendar Year: Other: Swallowing History: Dysphagia Specific: Risk of Aspiration Oral Phase Dysphagia Dysphagia Following CVA Comments: Pre-eval Risk for Aspiration: Neurological Condition Pre-evaluation Dietary Consistencies: Regular Pre-eval Liquid Intake: Thin Pre-eval Medication Intake: Whole with Liquid Reported Speech, Language, Cognition difficulties: Comments: Quality of Life: Patient Stated Goal of Speech-Language Therapy: Assessment Speech Production: Garbled Clinical Impression: Impaired Observations: Pt alert, pleasant. Pt expressed that she is angry with having had a stroke and wants to 'get back to normal'. Pt presents with mild dysarthria secondary to R sided facial weakness. Pt is 90% intelligible but endorses that she wants to improve. Orofacial exercises reviewed, print out of targeted exercises provided. Pt presents with adequate receptive and expressive language skills. No evidence of anomia in conversational exchanges and through standardized measures previously administered. Pt has hx of dementia, which mildly influences communication, though pt uses strategies to manage mild aphasia (i.e. asking for clarification or repetition). Patient w/ underlying dementia presents with mild dysarthria, mild aphasia, and mild oral phase dysphagia. Pt is on NDD3 diet with thin liquids d/t R-side facial weakness s/p acute CVA left frontal lobe. Recommend continued speech therapy during inpatient stay and at the next level of care. Informal Voice Assessment: Voice Loudness: Voice Nasal Resonance: Voice Oral Resonance: Voice Phonatory-based Quality: Voice Pitch: Voice Other Observations: Clinical Impression: Clinicial Observations: Tests of Speech & Lang Adults: BNT Clinical Impression: Impaired Observations: Patient correctly named 7 out of 15 images on the [place] Naming Test Short Form. Patient groped for words, stating, I know that word as well as I know my own name, but I can't think of it. Patient also produced some semantic paraphasias, (i.e. naming [place] as squirrel ), of which she was aware and made attempts to correct. Patient was able to name items when provided with phonemic cues and sentence completion cues. Patient was also able to recognize words from a choice of 4. Patient's son reports that patient's aphasia is also new. Tests of Cognition: Clinical Impression: Observations: Augmentative and Alternative Communication: Observations: Impressions and Recommendations Summary: Impact on Daily Function/Activity Limitations: Daily Activities: Interpersonal Interactions: Education: Employment: Community: Prognosis for Improvement: Good Comment: Recommendation for Speech Therapy: Inpatient Speech Therapy Speech Therapy through Rehab Facility Recommended Referrals to be Discussed with Primary Care Provider: Patient Education: Pt and pt son Completed: Yes Patient/Caregiver Education: Described Results of Evaluation Patient expressed understanding of evaluation Family/Caregivers expressed understanding of results Patient requires further education on strategies Comments/Barriers to Learning: Photocopying Equipment Mechanic Clinican/Clinical Fellow: No Supervisory Statement: N/A Speech Language Pathologist: Aditi Moralez M.S., CCC-LEAD MACHINIST
[2024-09-12 15:12] VITALS: BP 138/72; PULSE 94; RESP 14; TEMP 36.4; O2SAT 99
[2024-09-12 19:52] VITALS: BP 150/75; PULSE 101; RESP 18; TEMP 36.6; O2SAT 93
[2024-09-12 23:36] VITALS: BP 142/80; PULSE 101; RESP 16; TEMP 36.4; O2SAT 96
[2024-09-13 03:37] VITALS: BP 145/80; PULSE 79; RESP 16; TEMP 36.3; O2SAT 98
[2024-09-13 07:23] VITALS: BP 140/68; PULSE 75; RESP 18; TEMP 36.5; O2SAT 98
--- NOTE | 2024-09-13 09:57 | P.DS_ITS ---
DS: Providers Provider Date of Service: 09/13/24 Date of admission: 09/08/24 13:37 Date of discharge: 09/13/24 Primary care physician: ROGER CHANDLER MD Consults: 09/08/24 14:29 Consult to Neurology Routine Consulting Provider: Priya Loyd Reason for consultation: Right facial paralysis Has provider been notified: Yes 09/09/24 07:24 Consult to Vascular Surgery Routine Consulting Provider: [facility] Services Reason for consultation: carotid stenosis, acute stroke Has provider been notified: No DS: Diagnosis Discharge Diagnosis (1) Cerebrovascular accident: Status: Acute (2) Facial paralysis on right side: Status: Acute (3) Carotid stenosis, bilateral: Status: Acute DS: Summary Hospital Course Hospital Course: From H&P on the day of admission Ruthie Alexander is 89 years old woman with past medical history significant for essential hypertension and dementia was brought to the emergency department from her assisted living facility after she was noted to have left facial droop. HPI was partially provided by patient's son who was at bedside due to patient's dementia. There is no reported headache, acute visual disturbances, legs or and weakness, palpitations, loss of consciousness or slurred speech. Patient denied any acute gastrointestinal or genitourinary symptoms. She has no history of tobacco smoking, alcohol abuse or illicit drug use. In the ED, she was found to have elevated vital signs (max 231/116). Last blood pressure is 201/90. Other vital signs are normal. Blood workup CBC and BNP are unremarkable. LFTs are normal. INR is 1.0. Head CT scan without contrast showed no acute intracranial abnormality. Head and neck CTA showed probable significant stenosis of the right cavernous internal carotid artery, no large vessel occlusion on aneurysms. CXR showing coarse interstitial marking in the left lung base, probably chronic versus early pneumonia. ECG showed normal sinus rhythm with PVCs, and right bundle branch block. ED tx: Labetalol 10 mg IV total, aspirin 325 mg p.o., metoprolol 100 mg p.o Hospital coruse Acute stroke MRI positive for acute infarction in the left frontal lobe (also with old small infarct of the left parietal occipital junction and moderate to marked small- vessel ischemic disease) CTA with concern for carotic stenosis, carotid US with 50-79% on left. seen by vascular, reccommended conservative management. Continue aspirin, increased dose of atorvastatin. Seen by PT/OT who rec STR. speech eval rec NDD3 diet with thin liquids. seen by neuro -rec baby aspirin, statin, blood pressure control. Echocardiogram with preserved ejection fraction, no obvious valvular pathology or intracardiac clot Hypertensive emergency. BP very high on arrival. Continued on baseline losartan and started on low-dose Norvasc. Blood pressure has been improved. May need further titration as o utpatient. dementia Multifactorial degenerative and vascular dispo: to short term rehab Final diagnoses: Acute ischemic stroke HTN emergency Dementia Time Attestation Discharge Coordination Time (in mins): 45 Quality: Safe Use of Opioids Does Pt have an Active Cancer Diagnosis on the Problem List?: No Quality: Stroke Does the patient have a stroke diagnosis?: Yes Reason for No Anti-thrombotic at DC: N/A - Med Ordered Reason for No Anticoagulant at DC: Drug treatment not indicated Reason Not Initiating IV-Tpa: Drug treatment not indicated Reason for No Anti-thrombotic by Day Two: N/A - Med Ordered Reason for No Statin at DC: N/A - Med Ordered Physical Exam Vital Signs: Vital Signs: Last Vital Signs Temp 97.7 F 09/13/24 07:23 Pulse 75 09/13/24 07:23 Resp 18 09/13/24 07:23 BP 140/68 H 09/13/24 07:23 Pulse Ox 98 09/13/24 07:23 O2 Del Method Room Air 09/13/24 07:23 BMI result Body Mass Index 20.7 Const: Other: anxious, forgetful General: cooperative, comfortable, no acute distress, alert and awake Nutritional Appearance: average body habitus Orientation/consciousness: patient oriented x3 Resp: Effort & Inspection: normal respiratory effort, able to speak in complete sentences, no respiratory distress and no use of accessory muscles Cardio: Rate: regular rate GI: Palpation (GI): Soft to palpation Neuro: Other: right facial droop General: patient oriented x3 and moves all extremities Discharge Plan Discharge Anticipated Discharge Date/Time: 09/13/24 09:55 Patient Disposition: Xfer SNF Discharge Diagnosis: acute stroke Uncontrolled blood pressure Referrals: [facility] [Outside] - 1 Week ROGER CHANDLER [Primary Care Provider, Family Practice] - 1 Week Discharge Medications: New amlodipine 5 mg Tablet 5 mg PO DAILY 90 Days Qty: 90 0RF Protocol: Hold for SBP< HOLD for SBP < : 90 atorvastatin 80 mg Tablet 80 mg PO DAILY@1999 90 Days Qty: 90 0RF Continued losartan 50 mg tablet 50 mg PO DAILY@1999 aspirin 81 mg Tablet 81 mg PO DAILY acetaminophen 325 mg Tablet 650 mg PO Q8H PRN (Reason: Fever Or Pain) ibuprofen 200 mg Tablet 200 mg PO DAILY PRN (Reason: Pain) Discontinued atorvastatin 40 mg tablet 40 mg PO DAILY@1999 Discharge Orders: Discharge Order (Routine); Ordered 09/12/24 Ordered By: Kasia Perez Activity on Discharge: As tolerated Stand Alone Forms: Patient Portal Discharge page Print Language: Italian Care Plan Goals: See below Health Concerns: Acute stroke Bilateral carotid stenosis Uncontrolled hypertension Plan of Treatment: Dose of atorvastatin has been increased to 80 mg daily Amlodipine 5 mg has been added to control blood pressure Call to schedule follow-up appointment with PCP Recommend ongoing PT, OT, speech therapy Speech therapist has recommended NDD3 (chopped diet) Assessment: See discharge summary
--- NOTE | 2024-09-13 11:37 | HO.VASCPN ---
Subjective Subjective Date of Service: 09/13/24 Interval history: Ruthie is doing ok this morning. She is very confused and is asking the same questions repeatedly. She denies any headaches or weakness. She did not eat breakfast this morning; she states she did not like what they brought. She is upset about where she is and what happened. Physical Exam Vital Signs: Vital Signs: Last Vital Signs Temp 97.7 F 09/13/24 07:23 Pulse 75 09/13/24 07:23 Resp 18 09/13/24 07:23 BP 140/68 H 09/13/24 07:23 Pulse Ox 98 09/13/24 07:23 O2 Del Method Room Air 09/13/24 07:23 BMI result Body Mass Index 20.7 Const: General: comfortable, no acute distress and confusion Orientation/consciousness: confusion HEENT: Ears: hearing grossly normal bilaterally Resp: Effort & Inspection: normal respiratory effort and able to speak in complete sentences Auscultation: clear to auscultation bilaterally Cardio: Rate: regular rate Rhythm: regular rhythm Heart sounds: S1 normal heart sound present and S2 normal heart sound present Bruits: no abdominal aortic bruits, no carotid bruits, no femoral bruits and no renal bruits GI: Palpation (GI): No Abdominal aortic bruit present Neuro: General: confusion Cranial nerves: Yes CN's II-XII intact bilaterally Progress Note: A&P Assessment and plan (1) Stenosis of right internal carotid artery: Status: Acute Assessment and Plan: Ruthie remains stable from a vascular standpoint. She continues with confusion about the situation. Review of the CTA of the head and neck revealed DEAN <10% and LICA at appx 40%. The carotid doppler studies reveal DEAN at 0-40% and LICA at 50-79%. Due to the pt's multiple comorbidities, we will continue to monitor. If there are any questions or concerns, please do not hesitate to reach out to us. Time Spent With Patient Time: Total time managing care of this patient today ____ minutes. Procedures Date of Service Date of Service: 09/13/24 Quality Stroke Does the patient have a stroke diagnosis?: Yes Reason for No Anti-thrombotic by Day Two: N/A - Med Ordered VTE Prior VTE?: No VTE Risk Level:: Medical - moderate - high VTE Device Contraindication: Treatment Not Indicated VTE Drug Contraindication: N/A - Med Ordered
== END 2024-09-13 11:43 | disposition skilled nursing facility (03) | DRG 65 ==
LOC: HO.ED 13:37 → HO.EDOVER 14:03 → HO.IMC 15:54
PROVIDERS: Admitting Provider Internal Medicine; Emergency Provider Emergency Medicine; PCP Family Medicine; Visit Provider Internal Medicine
DX: I63.9 Cerebral infarction, unspecified (principal); I16.1 Hypertensive emergency; R29.810 Facial weakness; I10 Essential (primary) hypertension; I65.23 Occlusion and stenosis of bilateral carotid arteries; F01.C0 Vascular dementia, severe, without behavioral disturbance, psychotic disturbance, mood disturbance, and anxiety; R29.702 NIHSS score 2; Z87.891 Personal history of nicotine dependence; Z79.82 Long term (current) use of aspirin; Z79.899 Other long term (current) drug therapy
CPT/HCPCS: 36415; 70450; 70496; 70498; 70551; 71045; 80048; 80061; 82947; 84484; 85025; 85610; 85730; 92507; 93005; 93306; 93880; 97116; 97162; 97166; 97535; 99285; J1644; J1920; J3360; Q9967

== ENCOUNTER → 2024-09-08 11:59 | Outpatient (BNV) | payer MEDICARE, SELFPAY | PROVIDERS: Admitting Provider Internal Medicine; Emergency Provider Emergency Medicine; PCP Family Medicine; Visit Provider Internal Medicine | DX: I45.10 Unspecified right bundle-branch block (principal) | CPT/HCPCS: 93010 ==

== ENCOUNTER → 2024-09-08 11:59 | Outpatient (BNV) | payer SELFPAY | PROVIDERS: Emergency Provider Emergency Medicine; Visit Provider Radiology Diagnostic Radiology | DX: S09.90XA Unspecified injury of head, initial encounter (principal); I63.512 Cerebral infarction due to unspecified occlusion or stenosis of left middle cerebral artery; J84.9 Interstitial pulmonary disease, unspecified; M19.011 Primary osteoarthritis, right shoulder; M19.012 Primary osteoarthritis, left shoulder | CPT/HCPCS: 70450; 70496; 70498; 70551; 71045 ==

== ENCOUNTER 2024-09-08 13:37 | Outpatient (BNV) | payer MEDICARE, SELFPAY | END 2024-09-09 12:15 | PROVIDERS: Admitting Provider Internal Medicine; Emergency Provider Emergency Medicine; PCP Family Medicine; Visit Provider Radiology Diagnostic Radiology | DX: I65.23 Occlusion and stenosis of bilateral carotid arteries (principal) | CPT/HCPCS: 93880 ==

== ENCOUNTER 2024-09-08 13:37 | Outpatient (BNV) | payer MEDICARE, SELFPAY | END 2024-09-09 07:00 | PROVIDERS: Admitting Provider Internal Medicine; Emergency Provider Emergency Medicine; PCP Family Medicine; Visit Provider Internal Medicine | DX: I42.2 Other hypertrophic cardiomyopathy (principal) | CPT/HCPCS: 93306 ==

== ENCOUNTER → 2024-09-08 13:37 | Outpatient (BNV) | payer MEDICARE, SELFPAY | PROVIDERS: Admitting Provider Internal Medicine; Emergency Provider Emergency Medicine; PCP Family Medicine; Visit Provider Psychiatry & Neurology Neurology | DX: I63.312 Cerebral infarction due to thrombosis of left middle cerebral artery (principal) | CPT/HCPCS: 99222 ==

== ENCOUNTER → 2024-09-08 13:37 | Outpatient (BNV) | payer MEDICARE, SELFPAY | PROVIDERS: Admitting Provider Internal Medicine; Emergency Provider Emergency Medicine; PCP Family Medicine; Visit Provider Surgery Vascular Surgery | DX: I65.23 Occlusion and stenosis of bilateral carotid arteries (principal) | CPT/HCPCS: 99222; 99232 ==

== ENCOUNTER → 2024-09-08 13:37 | Outpatient (BNV) | payer MEDICARE, SELFPAY | PROVIDERS: Admitting Provider Internal Medicine; Emergency Provider Emergency Medicine; PCP Family Medicine; Visit Provider Internal Medicine | DX: I63.9 Cerebral infarction, unspecified (principal) | CPT/HCPCS: 99232; 99233 ==